=== PATIENT | female | born 1950 | race Caucasian/White ===

== ENCOUNTER 2022-02-25 14:23 | Emergency (ER) | payer MEDICARE, BC, SELFPAY ==
[2022-02-25] VITALS (9 sets, daily range): BP systolic 97–127; BP diastolic 57–73; PULSE 70–84; RESP 10–20; TEMP 36.5; O2SAT 96–100; BMI 28.1
[2022-02-25] MEDS: 0.9 % SODIUM CHLORIDE 500 ML 500 ML IV (15:05)
[2022-02-25 15:20] LABS: Lactate* 0.7 mmol/L (0.5-1.9)
[2022-02-25 15:24] LABS: Basophils Percent Auto 0.2 % (0.0-3.0); Eosinophils Percent Auto 0.1 % (0.0-7.0); Hematocrit 41.1 % (33.0-51.0); Hemoglobin* 13.4 gm/dL (12.0-16.0); Immature Granulocytes Abs Auto 0.13 K/uL (0.00-0.30); Mean Corpuscular HGB Conc 33 gm/dL (32-36); Mean Corpuscular Hemoglobin 30 pg (26-34); Mean Corpuscular Volume 92 fL (80-100); Monocytes Percent Auto 5.4 % (0.0-11.0); Neutrophils Percent Auto 86.3 % (42.0-72.0); Platelet Count* 201 K/uL (140-440); RDW Coefficient of Variation % 12.8 % (11.5-15.5); Red Blood Count 4.48 m/uL (4.00-5.20); White Blood Count* 12.82 K/uL (4.50-11.00)
[2022-02-25 15:34] LABS: Slide Review Reflex No
[2022-02-25 15:35] LABS: Chloride* 110 mmol/L (96-114); Sodium* 138 mmol/L (135-149)
[2022-02-25 15:36] LABS: Albumin* 3.7 g/dL (3.3-5.0); Potassium* 4.2 mmol/L (3.6-5.1)
[2022-02-25 15:38] LABS: Carbon Dioxide* 24 mmol/L (20-32); Estimated Glomerular Filt Rate 61 ml/min
[2022-02-25 15:39] LABS: Alkaline Phosphatase* 68 U/L (40-150); Aspartate Amino Transferase* 31 U/L (12-35); Bilirubin Direct* 0.3 mg/dL (0.0-0.5); Bilirubin Total* 0.8 mg/dL (0.1-1.5); Blood Urea Nitrogen* 18 mg/dL (7-30); Calcium* 8.4 mg/dL (8.4-10.6); Glucose* 107 mg/dL (60-115); Total Protein* 6.2 g/dL (6.0-8.3)
[2022-02-25 15:40] LABS: Alanine Aminotransferase* 24 U/L (4-35)
--- NOTE | 2022-02-25 15:40 | ED.NURSE ---
20G IV in L Hand placed by EMS DC'd at pt request due to c/o discomfort.
--- NOTE | 2022-02-25 16:01 | ED_ITS ---
HPI - General Adult General Chief complaint: Syncope/Fainted Stated complaint: Syncopal Time Seen by Provider: 02/25/22 14:46 History of Present Illness HPI narrative: 72-year-old female presenting to the ED today [place]. Patient was out on the golf course of this morning which happens to be 1 of the hardest days of the year, watching her grandson's golf tournament. She did not take a golf cart and instead opted to walk. So the alternated between walking and standing for prolonged periods of time with little movement. She states she was out there for about an hour when she began to sweat profusely. She asked someone if she could sit down in their golf cart and she apparently passed out at that time. The person who is goal carts she was sitting at was able to catch her so she did not hit her head or fall to the ground the gently placed her on the ground and she was told that she lost consciousness for approximately 20 seconds. She then came to and felt a little confused for maybe a minute or 2 before quickly realizing what had occurred and where she was. EMS was called at that time and she was brought to the ER for evaluation. By the time she arrives she had already received a L of normal saline and was asymptomatic. Her diaphoretic episode had subsided. She states that she is not confused, denies feeling hot. She denies any chest pain or abdominal discomfort. She was not nauseated denies vomiting. She does not have a headache. She denies any changes in her vision. She denies any muscle cramps. Her past medical history is significant for lichen sclerosis, hypothyroidism, hypertension, hyperlipidemia, osteopenia, narcolepsy. Related Data Allergies Allergy/AdvReac Type Severity Reaction Status Date / Time No Known Drug Allergies Allergy Verified 02/25/22 14:28 Review of Systems Status of ROS: Reports: 10 or more systems reviewed and unremarkable except as noted in History and below PFSH PFS Social History Smoking Status: Never smoker Do you use any of these nicotine containing products: None Second hand tobacco smoke exposure: No How often do you have a drink containing alcohol: never How often do you have six or more drinks on one occasion: Never AUDIT-C Alcohol total score: 0 Non-prescribed substance use: denies use Exam Narrative: Exam Narrative: Well-nourished well-developed patient in no acute distress. Alert and oriented. Answers questions appropriately. Mood and affect are appropriate. Thoughts are goal oriented and rational. No tangential or magical thinking noted. Patient speaks in full sentences without needing to catch their breath. Speech is not slurred or pressured. HEENT: Normocephalic atraumatic. Pupils are equally round reactive to light. Extraocular muscles are intact. Conjunctivae are moist without any icterus noted. Moist mucous membranes. Posterior pharynx is normal. Neck is soft without any lymphadenopathy or thyromegaly. No masses are appreciated. Cardiovascular: Heart is regular rate and rhythm S1 and S2 are present without any murmurs. Lungs: Clear to auscultation bilaterally no wheezes rhonchi or rales are appreciated. Patient takes deep breaths without any discomfort. Abdomen: Soft and nontender nondistended with normal bowel sounds. No guarding or rebound. No masses or organomegaly appreciated. Extremities: Bilateral lower extremities are without edema. Normal DP and PT pulses. Skin: Well perfused without any obvious rashes. Const: Vital Signs, click to edit/add: Vital Signs - 24 hr 02/25/22 14:28 02/25/22 14:35 02/25/22 15:00 Temperature 97.7 F Pulse Rate [Pulse Oximeter] 84 78 73 Respiratory Rate 20 Blood Pressure [Ri ght Upper Arm] 97/57 L 97/57 L 106/59 L Pulse Oximetry 98 98 98 02/25/22 15:30 02/25/22 16:00 02/25/22 16:30 Temperature Pulse Rate [Pulse Oximeter] 77 78 75 Respiratory Rate 20 10 L 12 Blood Pressure [Ri ght Upper Arm] 109/70 119/66 112/65 Pulse Oximetry 99 99 99 Course Course Hospital Course: Patient received another 500 mL of normal saline for a total of 1.5 L. Lab work was unremarkable aside from a slight bump in her white cell count which is expected. Her EKG showed normal sinus rhythm. Troponin, initial and repeat, were both within normal limits. Patient remained asymptomatic while she was here. Vital Signs Vital signs: Initial Vital Signs Temperature 97.7 F 02/25/22 14:28 Temperature Source Temporal Artery Scan 02/25/22 14:28 Pulse Rate 84 02/25/22 14:28 Pulse Rhythm 02/25/22 14:28 Respiratory Rate 20 02/25/22 14:28 Blood Pressure 97/57 L 02/25/22 14:28 Blood Pressure Mean 70 02/25/22 14:28 Pulse Oximetry 98 02/25/22 14:28 Oxygen Delivery Method 02/25/22 14:28 Vital Signs Temperature 97.7 F 02/25/22 14:28 Pulse Rate 84 02/25/22 14:28 Respiratory Rate 20 02/25/22 14:28 Blood Pressure 97/57 L 02/25/22 14:28 Pulse Oximetry 98 02/25/22 14:28 Temperature 97.7 F 02/25/22 14:28 Pulse Rate 75 02/25/22 16:30 Respiratory Rate 12 02/25/22 16:30 Blood Pressure 112/65 02/25/22 16:30 Pulse Oximetry 99 02/25/22 16:30 Medical Decision Making MDM Narrative Medical decision making narrative: 72-year-old female with heat syncope, recovered. We discussed symptomatic treatment. We discussed reasons to return to the ER. She was agreeable had no other questions. Medical Records Medical records reviewed: Yes I reviewed the patient's medical records Lab Data Lab results reviewed: Yes I reviewed the patient's lab results Labs: Lab Results 02/25/22 02/25/22 02/25/22 Range/Units 15:14 15:14 15:14 WBC 12.82 H (4.50-11.00) K/uL RBC 4.48 (4.00-5.20) m/uL Hgb 13.4 (12.0-16.0) gm/dL Hct 41.1 (33.0-51.0) % MCV 92 (80-100) fL MCH 30 (26-34) pg MCHC 33 (32-36) gm/dL RDW Coeff of Eliana 12.8 (11.5-15.5) % Plt Count 201 (140-440) K/uL Neut % (Auto) 86.3 H (42.0-72.0) % Lymph % (Auto) 7.0 L (20-44) % [place] % (Auto) 5.4 (0.0-11.0) % Eos % (Auto) 0.1 (0.0-7.0) % Baso % (Auto) 0.2 (0.0-3.0) % Neut # (Auto) 11.10 H (1.7-7.0) K/uL Lymph # (Auto) 0.90 (0.90-2.90) K/uL [place] # (Auto) 0.70 (0.00-0.90) K/UL Eos # (Auto) 0.00 (0.00-0.50) K/uL Baso # (Auto) 0.00 (0.00-0.30) K/uL Abs Immat Gran (auto) 0.13 (0.00-0.30) K/uL Sodium 138 (135-149) mmol/L Potassium 4.2 (3.6-5.1) mmol/L Chloride 110 (96-114) mmol/L Carbon Dioxide 24 (20-32) mmol/L BUN 18 (7-30) mg/dL Creatinine 1.0 (0.5-1.5) mg/dL Estimated Creat Clear 41.40 Estimated GFR 61 ml/min Glucose 107 (60-115) mg/dL Lactate (0.5-1.9) mmol/L Calcium 8.4 (8.4-10.6) mg/dL Total Bilirubin 0.8 (0.1-1.5) mg/dL Direct Bilirubin 0.3 (0.0-0.5) mg/dL AST 31 (12-35) U/L ALT 24 (4-35) U/L Alkaline Phosphatase 68 (40-150) U/L Total Protein 6.2 (6.0-8.3) g/dL Albumin 3.7 (3.3-5.0) g/dL POC Troponin I (0.01-0.04) ng/ml 02/25/22 02/25/22 02/25/22 Range/Units 15:14 16:14 17:30 WBC (4.50-11.00) K/uL RBC (4.00-5.20) m/uL Hgb (12.0-16.0) gm/dL Hct (33.0-51.0) % MCV (80-100) fL MCH (26-34) pg MCHC (32-36) gm/dL RDW Coeff of Eliana (11.5-15.5) % Plt Count (140-440) K/uL Neut % (Auto) (42.0-72.0) % Lymph % (Auto) (20-44) % [place] % (Auto) (0.0-11.0) % Eos % (Auto) (0.0-7.0) % Baso % (Auto) (0.0-3.0) % Neut # (Auto) (1.7-7.0) K/uL Lymph # (Auto) (0.90-2.90) K/uL [place] # (Auto) (0.00-0.90) K/UL Eos # (Auto) (0.00-0.50) K/uL Baso # (Auto) (0.00-0.30) K/uL Abs Immat Gran (auto) (0.00-0.30) K/uL Sodium (135-149) mmol/L Potassium (3.6-5.1) mmol/L Chloride (96-114) mmol/L Carbon Dioxide (20-32) mmol/L BUN (7-30) mg/dL Creatinine (0.5-1.5) mg/dL Estimated Creat Clear Estimated GFR ml/min Glucose (60-115) mg/dL Lactate 0.7 (0.5-1.9) mmol/L Calcium (8.4-10.6) mg/dL Total Bilirubin (0.1-1.5) mg/dL Direct Bilirubin (0.0-0.5) mg/dL AST (12-35) U/L ALT (4-35) U/L Alkaline Phosphatase (40-150) U/L Total Protein (6.0-8.3) g/dL Albumin (3.3-5.0) g/dL POC Troponin I 0.03 0.01 (0.01-0.04) ng/ml ECG Data Attestation: I personally reviewed and interpreted this ECG as follows: (Normal sinus rhythm) Discharge Plan Discharge Clinical Impression: Heat syncope Patient Disposition: Home, Self-Care Condition: Improved Additional Instructions: Make sure to stay in an air-conditioned environment for the next couple of days a given the extreme heat. Stay well hydrated. Get plenty of rest. Return to the ER if you developed muscle cramping, vomiting, fever. Follow Up/Referrals: Myra Escamilla MD [Primary Care Provider] - Stand Alone Forms: [employer] Info Instructions
[2022-02-25 16:31] LABS: Troponin, Point-of-Care* 0.03 ng/ml (0.01-0.04)
[2022-02-25 17:53] LABS: Troponin, Point-of-Care* 0.01 ng/ml (0.01-0.04)
== END 2022-02-25 18:10 | disposition home or self-care (01) ==
PROVIDERS: Emergency Provider Family Medicine; PCP Family Medicine
DX: T67.1XXA Heat syncope, initial encounter (principal)
CPT/HCPCS: 36415; 80048; 80076; 83605; 84484; 85025; 93005; 99284; J7120

== ENCOUNTER 2022-07-09 22:14 | Outpatient (CLI) | payer MEDICARE, BC, SELFPAY | END 2022-07-09 22:15 | disposition home or self-care (01) | LOC: AMB 07-19 10:25 | PROVIDERS: PCP Family Medicine; Visit Provider Emergency Medicine | DX: R53.1 Weakness (principal); R11.2 Nausea with vomiting, unspecified | CPT/HCPCS: A0425; A0427 ==

== ENCOUNTER 2022-07-09 23:01 | Emergency (ER) | payer MEDICARE, BC, SELFPAY ==
[2022-07-09 23:10] VITALS: BP 108/74; PULSE 62; RESP 18; TEMP 36.7; O2SAT 99; BMI 27.8
--- NOTE | 2022-07-09 23:42 | ED.GENADULT ---
HPI - General Adult General Date Seen: 07/09/22 <Michelle Lewis MD - Last Filed: 07/18/22 08:05> Chief complaint: Hypotension <Michelle Lewis MD - Last Filed: 07/18/22 08:05> Stated complaint: hypotension <Michelle Lewis MD - Last Filed: 07/18/22 08:05> Time Seen by Provider: 07/09/22 23:09 <Michelle Lewis MD - Last Filed: 07/18/22 08:05> Source: patient <Michelle Lewis MD - Last Filed: 07/18/22 08:05> History of Present Illness HPI narrative: Patient is a 72-year-old woman who is currently undergoing the prep for a colonoscopy scheduled tomorrow up in [place]. She says that she has had this scheduled for 2 months, she is having a colonoscopy and endoscopy on the same day. She has had some upper abdominal pain for a number of months now, tells me that she has had a CT scan that showed some adenopathy that was persistent, and her bilingual administrative assistant is concerned about possible Crohn's disease. She says that her daughter has upcoming neck surgery, and her is supposed to have a knee replacement in August, so she really needs to get her scopes done tomorrow. She had started the prep yesterday. She says she has had several colonoscopies before and so she is familiar with the prep. Tonight, she had done the [facility] in [facility] starting at about 530. By 830, she was still going to the bathroom, everything seemed to be okay. However, some point later, she was on her way to the bathroom and developed severe cramping in both legs. At that point, she developed nausea and then had several episodes of vomiting. She says she was vomiting initially clear fluid that look like they Gatorade she had been drinking. By the end she says she was vomiting bile. She did not have any significant abdominal pain at any point through this, she has continued to have that same vague upper abdominal pain that she has had over the past months. She says that the prep otherwise seemed to be going normally. She is not vomiting blood. She has not had any fevers. She denies chest pain or difficulty breathing. No light headedness or syncope. The leg cramps have settled down, and she no longer feels nauseated. At this point she feels back to normal. She did come been by ambulance, they gave her 500 mL of normal saline. <Michelle Lewis MD - Last Filed: 07/18/22 08:05> Related Data Home medications: Home Medications Medication Instructions Recorded Confirmed cetirizine 10 mg capsule (Zyrtec) 10 mg PO DAILY 07/09/22 07/09/22 clobetasol 0.05 % topical ointment 2 - 3 applic topical QWEEK 07/09/22 07/09/22 colestipol 1 gram tablet 2 g PO BID 07/09/22 07/09/22 levothyroxine 88 mcg tablet 88 mcg PO DAILY 07/09/22 07/09/22 lisinopril 20 mg tablet 20 mg PO DAILY 07/09/22 07/09/22 methylphenidate HCl 20 mg tablet 20 mg PO DAILY PRN 07/09/22 07/09/22 (Ritalin) multivitamin (Daily Multi-Vitamin 1 tab PO DAILY 07/09/22 07/09/22 tablet) rosuvastatin 5 mg tablet 5 mg PO HS 07/09/22 07/09/22 <Michelle Lewis MD - Last Filed: 07/18/22 08:05> Allergies/adverse reactions: Allergies Allergy/AdvReac Type Severity Reaction Status Date / Time ciprofloxacin Allergy Intermediate Hives Verified 07/09/22 23:27 morphine AdvReac Intermediate Vomiting, Verified 07/09/22 23:27 Dizziness naproxen AdvReac Mild GI Upset Verified 07/09/22 23:27 oxycodone AdvReac Mild GI Upset Verified 07/09/22 23:27 tramadol AdvReac Mild GI Upset Verified 07/09/22 23:27 <Michelle Lewis MD - Last Filed: 07/18/22 08:05> Review of Systems Status of ROS: Reports: 10 or more systems reviewed and unremarkable except as noted in History and below <Michelle Lewis MD - Last Filed: 07/18/22 08:05> [facility] Medical History: Medical History (Updated 07/25/22 @ 00:02 by ) Cataract Maxine's disease HTN (hypertension) Hyperlipidemia ZHENG (obstructive sleep apnea) Osteopenia Sleep disorder <Michelle Lewis MD - Last Filed: 07/18/22 08:05> Surgical History: Surgical History (Updated 07/10/22 @ 00:04 by Saul Barboza RN) History of section History of colonoscopy History of endoscopy History of hemilaminectomy History of tonsillectomy Hx of cholecystectomy <Michelle Lewis MD - Last Filed: 07/18/22 08:05> Social History: Social History Smoking Status: Never smoker Do you use any of these nicotine containing products: None Second hand tobacco smoke exposure: No How often do you have a drink containing alcohol: never How often do you have six or more drinks on one occasion: Never AUDIT-C Alcohol total score: 0 Non-prescribed substance use: denies use <Michelle Lewis MD - Last Filed: 07/18/22 08:05> Exam Narrative: Exam Narrative: Vital signs as noted above. In general, an alert, well-appearing patient. Head: Normocephalic, atraumatic. Eyes: Pupils are equal reactive. Extraocular movements are full. Conjunctivae are normal. ENT: Mucous membranes are moist. Throat is normal. Neck: Supple without lymphadenopathy. Heart: Regular rate and rhythm. No murmur or rub. Lungs: Clear bilaterally. No increased work of breathing, crackles or wheezes. Abdomen: Soft and nontender. No organomegaly. Extremities: Well perfused. No edema. No calf tenderness. Pulses intact. Neurologic: Patient is alert and oriented to person and place. Speech is fluent. Face is symmetric. Moves all extremities equally. Affect: Normal. Skin: Warm and dry. Well perfused. <Michelle Lewis MD - Last Filed: 07/18/22 08:05> Const: Vital Signs, click to edit/add: Vital Signs - 24 hr 07/09/22 23:10 Temperature 98.1 F Pulse Rate [Right Pulse Oximeter] 62 Respiratory Rate 18 Blood Pressure [Ri ght Upper Arm] 108/74 Pulse Oximetry 99 Oxygen Delivery Me thod Room Air <Michelle Lewis MD - Last Filed: 07/18/22 08:05> Vital Signs, click to edit/add: Vital Signs - 24 hr 07/09/22 23:10 Temperature 98.1 F Pulse Rate [Right Pulse Oximeter] 62 Respiratory Rate 18 Blood Pressure [Ri ght Upper Arm] 108/74 Pulse Oximetry 99 Oxygen Delivery Me thod Room Air <Krishan Shay MD - Last Filed: 09/05/22 11:02> Documenting provider has reviewed patient's vital signs: yes <Michelle Lewis MD - Last Filed: 07/18/22 08:05> Course Course Hospital Course: She has not established IV, I think we will just go ahead and give her another L of fluid while we checked some labs. Her vital signs are reassuring here, she does not have any significant abdominal tenderness. It sounds as if the prep was going through fine, there is nothing to suggest an obstruction here. We will check for any significant electrolyte abnormalities. It is possible this represented a vagal response to her leg cramping. We will go ahead and check an EKG as well and rule out any kind of predisposition to a cardiac arrhythmia. EKG by my review shows a sinus rhythm with a ventricular rate of 63 beats per minute. Normal QT. Normal MA. No acute ST segment changes. We will check some labs here including electrolytes, CBC, troponin. I think if these are normal, it is reasonable to let her go home. She is feeling well at this time. Medics report initial blood pressures in the 80s, but this is resolved with a little bit of fluid. Labs are likely related just to her prep, fluid losses, vomiting, and again, possibly a little bit of a component of vagal at divot 8. The leg cramping has resolved. If her potassium or another electrolyte is abnormal, we will replace that. Otherwise, plan will be did discharge her home as she is very much interested in being able to get her scoped tomorrow as planned. I think that is very much in her best interest. Certainly if she has acute changes, develops severe abdominal pain, further vomiting, further hypotension, we can invest more. Otherwise, patient is signed out to Dr. Shay for final disposition pending labs. <Michelle Lewis MD - Last Filed: 07/18/22 08:05> Reevaluation(s) Reevaluation #1: Patient was signed out to me by outgoing ED physician, no changes with her lab results, she is feeling well, plan would be to discharge as explained by previous provider to patient, patient had time to ask questions, she will follow up as scheduled. Return precautions given. <Krishan Shay MD - Last Filed: 09/05/22 11:02> Vital Signs Vital signs: Initial Vital Signs Temperature 98.1 F 07/09/22 23:10 Temperature Source Temporal Artery Scan 07/09/22 23:10 Pulse Rate 62 07/09/22 23:10 Respiratory Rate 18 07/09/22 23:10 Blood Pressure 108/74 07/09/22 23:10 Blood Pressure Mean 85 07/09/22 23:10 Blood Pressure Position Sitting 07/09/22 23:10 Pulse Oximetry 99 07/09/22 23:10 Oxygen Delivery Method 07/09/22 23:10 Vital Signs Temperature 98.1 F 07/09/22 23:10 Pulse Rate 62 07/09/22 23:10 Respiratory Rate 18 07/09/22 23:10 Blood Pressure 108/74 07/09/22 23:10 Pulse Oximetry 99 07/09/22 23:10 Oxygen Delivery Method 07/09/22 23:10 Temperature 98.1 F 07/09/22 23:10 Pulse Rate 68 07/10/22 01:30 Respiratory Rate 16 07/10/22 01:30 Blood Pressure 105/78 07/10/22 01:30 Pulse Oximetry 98 07/10/22 01:30 Oxygen Delivery Method 07/10/22 01:30 <Michelle Lewis MD - Last Filed: 07/18/22 08:05> Initial Vital Signs Temperature 98.1 F 07/09/22 23:10 Temperature Source Temporal Artery Scan 07/09/22 23:10 Pulse Rate 62 07/09/22 23:10 Respiratory Rate 18 07/09/22 23:10 Blood Pressure 108/74 07/09/22 23:10 Blood Pressure Mean 85 07/09/22 23:10 Blood Pressure Position Sitting 07/09/22 23:10 Pulse Oximetry 99 07/09/22 23:10 Oxygen Delivery Method 07/09/22 23:10 Vital Signs Temperature 98.1 F 07/09/22 23:10 Pulse Rate 62 07/09/22 23:10 Respiratory Rate 18 07/09/22 23:10 Blood Pressure 108/74 07/09/22 23:10 Pulse Oximetry 99 07/09/22 23:10 Oxygen Delivery Method 07/09/22 23:10 Temperature 98.1 F 07/09/22 23:10 Pulse Rate 68 07/10/22 01:30 Respiratory Rate 16 07/10/22 01:30 Blood Pressure 105/78 07/10/22 01:30 Pulse Oximetry 98 07/10/22 01:30 Oxygen Delivery Method 07/10/22 01:30 <Krishan Shay MD - Last Filed: 09/05/22 11:02> Medical Decision Making Lab Data Labs: Lab Results 07/10/22 07/10/22 07/10/22 Range/Units 00:05 00:05 00:05 WBC 12.78 H (4.50-11.00) K/uL RBC 4.82 (4.00-5.20) m/uL Hgb 14.6 (12.0-16.0) gm/dL Hct 43.8 (33.0-51.0) % MCV 91 (80-100) fL MCH 30 (26-34) pg MCHC 33 (32-36) gm/dL RDW Coeff of Eliana 12.6 (11.5-15.5) % Plt Count 214 (140-440) K/uL Neut % (Auto) 87.5 H (42.0-72.0) % Lymph % (Auto) 7.5 L (20-44) % [place] % (Auto) 4.4 (0.0-11.0) % Eos % (Auto) 0.2 (0.0-7.0) % Baso % (Auto) 0.2 (0.0-3.0) % Neut # (Auto) 11.20 H (1.7-7.0) K/uL Lymph # (Auto) 1.00 (0.90-2.90) K/uL [place] # (Auto) 0.60 (0.00-0.90) K/UL Eos # (Auto) 0.00 (0.00-0.50) K/uL Baso # (Auto) 0.00 (0.00-0.30) K/uL Abs Immat Gran (auto) 0.00 (0.00-0.30) K/uL Imm/Tot Granulo (auto) 0.2 % Sodium 142 (135-149) mmol/L Potassium 4.0 (3.6-5.1) mmol/L Chloride 110 (96-114) mmol/L Carbon Dioxide 22 (20-32) mmol/L BUN 13 (7-30) mg/dL Creatinine 1.0 (0.5-1.5) mg/dL Estimated Creat Clear 43.30 Estimated GFR 61 ml/min Glucose 102 (60-115) mg/dL Calcium 9.3 (8.4-10.6) mg/dL Magnesium 2.3 (1.5-2.6) mg/dL Troponin I < 0.01 L (0.01-0.04) ng/mL <Michelle Lewis MD - Last Filed: 07/18/22 08:05> Lab Results 07/10/22 07/10/22 07/10/22 Range/Units 00:05 00:05 00:05 WBC 12.78 H (4.50-11.00) K/uL RBC 4.82 (4.00-5.20) m/uL Hgb 14.6 (12.0-16.0) gm/dL Hct 43.8 (33.0-51.0) % MCV 91 (80-100) fL MCH 30 (26-34) pg MCHC 33 (32-36) gm/dL RDW Coeff of Eliana 12.6 (11.5-15.5) % Plt Count 214 (140-440) K/uL Neut % (Auto) 87.5 H (42.0-72.0) % Lymph % (Auto) 7.5 L (20-44) % [place] % (Auto) 4.4 (0.0-11.0) % Eos % (Auto) 0.2 (0.0-7.0) % Baso % (Auto) 0.2 (0.0-3.0) % Neut # (Auto) 11.20 H (1.7-7.0) K/uL Lymph # (Auto) 1.00 (0.90-2.90) K/uL [place] # (Auto) 0.60 (0.00-0.90) K/UL Eos # (Auto) 0.00 (0.00-0.50) K/uL Baso # (Auto) 0.00 (0.00-0.30) K/uL Abs Immat Gran (auto) 0.00 (0.00-0.30) K/uL Imm/Tot Granulo (auto) 0.2 % Sodium 142 (135-149) mmol/L Potassium 4.0 (3.6-5.1) mmol/L Chloride 110 (96-114) mmol/L Carbon Dioxide 22 (20-32) mmol/L BUN 13 (7-30) mg/dL Creatinine 1.0 (0.5-1.5) mg/dL Estimated Creat Clear 43.30 Estimated GFR 61 ml/min Glucose 102 (60-115) mg/dL Calcium 9.3 (8.4-10.6) mg/dL Magnesium 2.3 (1.5-2.6) mg/dL Troponin I < 0.01 L (0.01-0.04) ng/mL <Krishan Shay MD - Last Filed: 09/05/22 11:02> Discharge Plan Discharge Clinical Impression: Muscle cramp, Vomiting <Michelle Lewis MD - Last Filed: 07/18/22 08:05> Patient Disposition: Home, Self-Care <Michelle Lewis MD - Last Filed: 07/18/22 08:05> Condition: Improved <Michelle Lewis MD - Last Filed: 07/18/22 08:05> Instructions: Leg Cramps (ED) <Michelle Lewis MD - Last Filed: 07/18/22 08:05> Additional Instructions: Follow-up today for colonoscopy and endoscopy as planned. Return for any acute worsening, severe abdominal pain, fainting, or other concerns. <Michelle Lewis MD - Last Filed: 07/18/22 08:05> Prescriptions: No Action clobetasol 0.05 % ointment 2 - 3 applic TOPICAL QWEEK Label Comments: APPLY 2 TO 3 NIGHTS WEEKLY ON VULVA colestipol 1 gram tablet 2 g PO BID Label Comments: TAKE 2 TABLETS BY MOUTH TWICE DAILY SWALLOWING WHOLE WITH ANY LIQUID. DO NOT CRUSH, CHEW, OR DIVIDE levothyroxine 88 mcg tablet 88 mcg PO DAILY Label Comments: TAKE 1 TABLET (88 MCG) BY MOUTH BEFORE BREAKFAST. lisinopril 20 mg tablet 20 mg PO DAILY Label Comments: TAKE 1 TABLET BY MOUTH EVERY DAY rosuvastatin 5 mg tablet 5 mg PO HS Label Comments: TAKE 1 TABLET BY MOUTH AT BEDTIME Zyrtec 10 mg capsule 10 mg PO DAILY multivitamin [Daily Multi-Vitamin] Tablet 1 tab PO DAILY methylphenidate HCl [Ritalin] 20 mg tablet 20 mg PO DAILY PRN Label Comments: take one tablet as needed for driving <Michelle Lewis MD - Last Filed: 07/18/22 08:05> Follow Up/Referrals: Myra Escamilla MD [Primary Care Provider] - <Michelle Lewis MD - Last Filed: 07/18/22 08:05> Stand Alone Forms: [employer] Info Instructions <Michelle Lewis MD - Last Filed: 07/18/22 08:05>
[2022-07-10] MEDS: 0.9 % SODIUM CHLORIDE 1000 ml 1,000 ML IV (00:05)
[2022-07-10 00:15] VITALS: PULSE 74; O2SAT 97
[2022-07-10 00:30] VITALS: PULSE 65; O2SAT 99
[2022-07-10 00:31] VITALS: BP 100/62; PULSE 65; O2SAT 97
[2022-07-10 00:35] LABS: Basophils Percent Auto 0.2 % (0.0-3.0); Chloride* 110 mmol/L (96-114); Eosinophils Percent Auto 0.2 % (0.0-7.0); Hematocrit 43.8 % (33.0-51.0); Hemoglobin* 14.6 gm/dL (12.0-16.0); Immature Granulocytes Pct Auto 0.2 %; Lymphocytes Percent Auto 7.5 % (20-44); Mean Corpuscular HGB Conc 33 gm/dL (32-36); Mean Corpuscular Hemoglobin 30 pg (26-34); Mean Corpuscular Volume 91 fL (80-100); Monocytes Percent Auto 4.4 % (0.0-11.0); Neutrophils Percent Auto 87.5 % (42.0-72.0); Platelet Count* 214 K/uL (140-440); RDW Coefficient of Variation % 12.6 % (11.5-15.5); Red Blood Count 4.82 m/uL (4.00-5.20); White Blood Count* 12.78 K/uL (4.50-11.00)
[2022-07-10 00:36] LABS: Sodium* 142 mmol/L (135-149)
[2022-07-10 00:37] LABS: Slide Review Reflex No
[2022-07-10 00:38] LABS: Estimated Glomerular Filt Rate 61 ml/min
[2022-07-10 00:39] LABS: Blood Urea Nitrogen* 13 mg/dL (7-30); Calcium* 9.3 mg/dL (8.4-10.6); Carbon Dioxide* 22 mmol/L (20-32); Glucose* 102 mg/dL (60-115); Magnesium* 2.3 mg/dL (1.5-2.6)
[2022-07-10 00:45] VITALS: PULSE 71; O2SAT 96
[2022-07-10 00:51] LABS: Troponin I* < 0.01 ng/mL (0.01-0.04)
[2022-07-10 01:30] VITALS: BP 105/78; PULSE 68; RESP 16; O2SAT 98
== END 2022-07-10 01:35 | disposition home or self-care (01) ==
PROVIDERS: Emergency Provider Emergency Medicine; PCP Family Medicine
DX: R11.10 Vomiting, unspecified (principal); M62.838 Other muscle spasm
CPT/HCPCS: 36415; 80048; 83735; 84484; 85025; 93005; 99283; 99284; J7030

== ENCOUNTER 2022-11-06 10:00 | Outpatient (RCR) | payer MEDICARE, BC, SELFPAY | END 2023-02-27 23:59 | disposition home or self-care (01) | PROVIDERS: PCP Family Medicine; Visit Provider Family Medicine | DX: M54.9 Dorsalgia, unspecified (principal); M54.2 Cervicalgia; M25.562 Pain in left knee; Z51.89 Encounter for other specified aftercare | CPT/HCPCS: 97110; 97140; 97162 ==

== ENCOUNTER 2022-11-13 03:50 | Emergency (ER) | payer MEDICARE, BC, SELFPAY ==
[2022-11-13] VITALS (7 sets, daily range): BP systolic 108–117; BP diastolic 70–75; PULSE 70–77; RESP 16–18; TEMP 36.7–37; O2SAT 93–99; BMI 28.3
--- NOTE | 2022-11-13 04:24 | ED_ITS ---
HPI - General Adult General Date Seen: 11/13/22 Chief complaint: Unspecified Complaint, Adult Stated complaint: Dehydration Time Seen by Provider: 11/13/22 03:55 Source: patient Mode of arrival: ambulatory Limitations: no limitations History of Present Illness HPI narrative: Patient is a 72-year-old here for evaluation of diarrhea which started several hours ago. She does have a grandchild who was staying with her a couple of days ago who had some GI symptoms. She has had a little nausea but no vomiting. She says that she tried drinking a little water earlier and it went straight th rough. She has not had any bloody stools. Has little abdominal cramping no severe abdominal pain. No fevers. No recent antibiotics, non city water, travel. History of previous cholecystectomy. She says that she has fainted in the past due to dehydration and so decided to come in right away. Related Data Home Medications Medication Instructions Recorded Confirmed cetirizine 10 mg capsule (Zyrtec) 10 mg PO DAILY 07/09/22 11/13/22 clobetasol 0.05 % topical ointment 2 - 3 applic topical QWEEK 07/09/22 11/13/22 colestipol 1 gram tablet 2 g PO BID 07/09/22 11/13/22 levothyroxine 88 mcg tablet 88 mcg PO DAILY 07/09/22 11/13/22 lisinopril 10 mg tablet 10 mg PO DAILY 11/13/22 11/13/22 rosuvastatin 10 mg tablet 10 mg PO QPM 11/13/22 11/13/22 Allergies Allergy/AdvReac Type Severity Reaction Status Date / Time ciprofloxacin Allergy Intermediate Hives Verified 11/13/22 04:07 morphine AdvReac Mild Vomiting, Verified 11/13/22 04:07 Dizziness naproxen AdvReac Mild GI Upset Verified 11/13/22 04:07 oxycodone AdvReac Mild GI Upset Verified 11/13/22 04:07 tramadol AdvReac Mild GI Upset Verified 11/13/22 04:07 Review of Systems Status of ROS: Reports: 10 or more systems reviewed and unremarkable except as noted in History and below [facility] Medical History Cataract ?H26.9 - Unspecified cataract (ICD-10) 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890 - Other specified postprocedural states (ICD-10) History of hemilaminectomy ?Z98.890 - Other specified postprocedural states (ICD-10) History of tonsillectomy ?Z90.89 - Acquired absence of other organs (ICD-10) Hx of cholecystectomy ?Z90.49 - Acquired absence of other specified parts of digestive tract (ICD- 10) Social History Smoking Status: Never smoker Do you use any of these nicotine containing products: None Second hand tobacco smoke exposure: No How often do you have a drink containing alcohol: never How often do you have six or more drinks on one occasion: Never AUDIT-C Alcohol total score: 0 Non-prescribed substance use: denies use Exam Narrative: Exam Narrative: Vital signs as noted above. In general, an alert, well-appearing patient. Head: Normocephalic, atraumatic. Eyes: Pupils are equal reactive. Extraocular movements are full. Conjunctivae are normal. ENT: Mucous membranes are moist. Throat is normal. Neck: Supple without lymphadenopathy. Heart: Regular rate and rhythm. No murmur or rub. Lungs: Clear bilaterally. No increased work of breathing, crackles or wheezes. Abdomen: Soft and nontender. No organomegaly. Extremities: Well perfused. No edema. No calf tenderness. Pulses intact. Neurologic: Patient is alert and oriented to person and place. Speech is fluent. Face is symmetric. Moves all extremities equally. Affect: Normal. Skin: Warm and dry. Well perfused. Const: Vital Signs, click to edit/add: Vital Signs - 24 hr 11/13/22 04:03 11/13/22 04:24 11/13/22 04:17 Temperature 98.0 F Pulse Rate 77 Pulse Rate [Right Pulse Oximeter] 74 Respiratory Rate 18 16 Blood Pressure 108/72 Blood Pressure [Ri ght Upper Arm] 117/75 Pulse Oximetry 99 98 94 Oxygen Delivery Me thod Room Air Documenting provider has reviewed patient's vital signs: yes Course Course Hospital Course: She is well-appearing at this time, vital signs are normal. Will go ahead and give her a L of normal saline and check some electrolytes, basic labs. My suspicion for significant disease such as ischemic colitis, diverticulitis, is rather low. She has had symptoms only for a few hours, does not have signs of dysentery, has benign abdominal exam. For now, would recommend supportive care, Imodium is reasonable. Labs are reassuring. White blood cell count is normal with a slight left shift. Hemoglobin 15.3. Electrolytes show sodium of 138, potassium 4.3. BUN creatinine normal. Blood sugar 131. LFTs are unremarkable. CRP is less than 0.5. Would recommend primary care follow-up if symptoms do not improve over the next few days to week, return for severe changes such as bloody stools, fever, severe abdominal pain. Continue to hydrate at home. Vital Signs Vital signs: Initial Vital Signs Temperature 98.0 F 11/13/22 04:03 Temperature Source Temporal Artery Scan 11/13/22 04:03 Pulse Rate 74 11/13/22 04:03 Respiratory Rate 18 11/13/22 04:03 Blood Pressure 117/75 11/13/22 04:03 Blood Pressure Mean 89 11/13/22 04:03 Blood Pressure Position Sitting 11/13/22 04:03 Pulse Oximetry 99 11/13/22 04:03 Oxygen Delivery Method Room Air 11/13/22 04:03 Vital Signs Temperature 98.0 F 11/13/22 04:03 Pulse Rate 74 11/13/22 04:03 Respiratory Rate 18 11/13/22 04:03 Blood Pressure 117/75 11/13/22 04:03 Pulse Oximetry 99 11/13/22 04:03 Oxygen Delivery Method Room Air 11/13/22 04:03 Temperature 98.0 F 11/13/22 04:03 Pulse Rate 77 11/13/22 04:17 Respiratory Rate 16 11/13/22 04:17 Blood Pressure 108/72 11/13/22 04:17 Pulse Oximetry 98 11/13/22 04:24 Oxygen Delivery Method Room Air 11/13/22 04:03 Medical Decision Making Lab Data Labs: Lab Results 11/13/22 Range/Units 04:20 WBC 9.87 (4.50-11.00) K/uL RBC 5.08 (4.00-5.20) m/uL Hgb 15.3 (12.0-16.0) gm/dL Hct 45.3 (33.0-51.0) % MCV 89 (80-100) fL MCH 30 (26-34) pg MCHC 34 (32-36) gm/dL RDW Coeff of Eliana 12.6 (11.5-15.5) % Plt Count 217 (140-440) K/uL Neut % (Auto) 85.3 H (42.0-72.0) % Lymph % (Auto) 7.1 L (20-44) % Robertson % (Auto) 5.8 (0.0-11.0) % Eos % (Auto) 1.3 (0.0-7.0) % Baso % (Auto) 0.2 (0.0-3.0) % Neut # (Auto) 8.40 H (1.7-7.0) K/uL Lymph # (Auto) 0.70 L (0.90-2.90) K/uL Robertson # (Auto) 0.60 (0.00-0.90) K/UL Eos # (Auto) 0.13 (0.00-0.50) K/uL Baso # (Auto) 0.02 (0.00-0.30) K/uL Sodium 138 (135-149) mmol/L Potassium 4.3 (3.6-5.1) mmol/L Chloride 110 (96-114) mmol/L Carbon Dioxide 22 (20-32) mmol/L BUN 16 (7-30) mg/dL Creatinine 0.8 (0.5-1.5) mg/dL Estimated Creat Clear 43.30 Estimated GFR 79 ml/min Glucose 131 H (60-115) mg/dL Calcium 9.0 (8.4-10.6) mg/dL Total Bilirubin 0.8 (0.1-1.5) mg/dL Direct Bilirubin 0.2 (0.0-0.5) mg/dL AST 34 (12-35) U/L ALT 30 (4-35) U/L Alkaline Phosphatase 68 (40-150) U/L C-Reactive Protein < 0.5 L (0.5-1.0) mg/dL Total Protein 7.6 (6.0-8.3) g/dL Albumin 4.4 (3.3-5.0) g/dL Discharge Plan Discharge Clinical Impression: Diarrhea Patient Disposition: Home, Self-Care Condition: Improved Instructions: Acute Diarrhea (ED) Additional Instructions: Continue with oral hydration at home. For diarrhea, it is okay to try a couple of doses of Imodium. If you have severe abdominal pain, fevers, bloody stools, significant vomiting, you should be seen again. If the diarrhea does not resolve over the next several days to week, follow-up with your primary doctor. Prescriptions: No Action clobetasol 0.05 % ointment 2 - 3 applic TOPICAL QWEEK Patient Comments: APPLY 2 TO 3 NIGHTS WEEKLY ON VULVA colestipol 1 gram tablet 2 g PO BID Patient Comments: TAKE 2 TABLETS BY MOUTH TWICE DAILY SWALLOWING WHOLE WITH ANY LIQUID. DO NOT CRUSH, CHEW, OR DIVIDE levothyroxine 88 mcg tablet 88 mcg PO DAILY Patient Comments: TAKE 1 TABLET (88 MCG) BY MOUTH BEFORE BREAKFAST. Zyrtec 10 mg capsule 10 mg PO DAILY lisinopril 10 mg tablet 10 mg PO DAILY rosuvastatin 10 mg tablet 10 mg PO QPM Follow Up/Referrals: Myra Escamilla MD [Primary Care Provider] - Stand Alone Forms: [employer] Info Instructions
[2022-11-13] MEDS: 0.9 % SODIUM CHLORIDE 1000 ml 1,000 ML IV (04:25)
[2022-11-13 04:31] LABS: Basophils Absolute Auto 0.02 K/uL (0.00-0.30); Basophils Percent Auto 0.2 % (0.0-3.0); Eosinophils Absolute Auto 0.13 K/uL (0.00-0.50); Eosinophils Percent Auto 1.3 % (0.0-7.0); Hematocrit 45.3 % (33.0-51.0); Hemoglobin* 15.3 gm/dL (12.0-16.0); Immature Granulocytes Abs Auto 0.03 K/uL (0.00-0.30); Immature Granulocytes Pct Auto 0.3 %; Lymphocytes Percent Auto 7.1 % (20-44); Mean Corpuscular HGB Conc 34 gm/dL (32-36); Mean Corpuscular Hemoglobin 30 pg (26-34); Mean Corpuscular Volume 89 fL (80-100); Monocytes Percent Auto 5.8 % (0.0-11.0); Neutrophils Percent Auto 85.3 % (42.0-72.0); Platelet Count* 217 K/uL (140-440); RDW Coefficient of Variation % 12.6 % (11.5-15.5); Red Blood Count 5.08 m/uL (4.00-5.20); White Blood Count* 9.87 K/uL (4.50-11.00)
[2022-11-13 04:46] LABS: Slide Review Reflex No
[2022-11-13 04:50] LABS: Albumin* 4.4 g/dL (3.3-5.0); Chloride* 110 mmol/L (96-114)
[2022-11-13 04:51] LABS: Potassium* 4.3 mmol/L (3.6-5.1); Sodium* 138 mmol/L (135-149)
[2022-11-13 04:53] LABS: Creatinine* 0.8 mg/dL (0.5-1.5); Estimated Glomerular Filt Rate 79 ml/min
[2022-11-13 04:54] LABS: Alanine Aminotransferase* 30 U/L (4-35); Alkaline Phosphatase* 68 U/L (40-150); Aspartate Amino Transferase* 34 U/L (12-35); Bilirubin Direct* 0.2 mg/dL (0.0-0.5); Bilirubin Total* 0.8 mg/dL (0.1-1.5); Blood Urea Nitrogen* 16 mg/dL (7-30); Carbon Dioxide* 22 mmol/L (20-32); Total Protein* 7.6 g/dL (6.0-8.3)
[2022-11-13 04:55] LABS: Glucose* 131 mg/dL (60-115)
[2022-11-13 04:57] LABS: C Reactive Protein* < 0.5 mg/dL (0.5-1.0)
== END 2022-11-13 05:11 | disposition home or self-care (01) ==
PROVIDERS: Emergency Provider Emergency Medicine; PCP Family Medicine
DX: R19.7 Diarrhea, unspecified (principal)
CPT/HCPCS: 36415; 80048; 80076; 85025; 86140; 94761; 96360; 99283; 99284; J7030

== ENCOUNTER 2023-08-02 06:07 | Emergency (ER) | payer MEDICARE, BC, SELFPAY ==
[2023-08-02 06:13] VITALS: BP 131/78; PULSE 59; RESP 16; TEMP 36.6; O2SAT 98; BMI 28.9
--- NOTE | 2023-08-02 06:20 | CRLHL7_ITS ---
For Patients: As a result of the Century Cures Act, medical imaging exams and procedure reports are released immediately into your electronic medical record. You may view this report before your referring provider. If you have questions, please contact your health care provider. INDICATION: Lower abdominal pain. History of diverticulosis. COMPARISON: December 31, 2020 TECHNIQUE: CT examination of the abdomen and pelvis was performed following the uneventful intravenous administration of 78 cc of Isovue 370. Thin section axial images were obtained from the lung bases through the pubic symphysis. Oral contrast was not administered. Please note that all CT scans at this facility use dose modulation, iterative reconstruction, and/or weight-based dosing when appropriate to reduce radiation dose to as low as reasonably achievable. FINDINGS: LUNG BASES: The lung bases as visualized appear normal.The heart size is normal at the lung bases. LIVER/BILIARY SYSTEM:Liver normal in size. No biliary ductal dilation. Small simple cyst in the left lobe.Surgically absent gallbladder. ADRENALS: No significant adrenal abnormality KIDNEYS, URETERS and BLADDER:Benign low-density renal lesions noted. Right-sided calculus but no obstructive uropathy. Ureters of normal caliber. Bladder unremarkable. SPLEEN:Incidental granulomatous calcifications PANCREAS: Appears normal. RETROPERITONEUM and MESENTERY: There is no mass, adenopathy or aortic aneurysm. Atherosclerotic vascular calcifications GASTROINTESTINAL SYSTEM: Diverticulosis. Findings of very mild acute uncomplicated sigmoid diverticulitis. This is best seen on axial image 96 of 139. PELVIS: No mass, adenopathy or free fluid. OSSEOUS STRUCTURES and ABDOMINAL WALL: There is an age-appropriate appearance of the osseous structures.No significant abdominal wall defect. OTHER: No free fluid or free air. IMPRESSION: Findings likely representing very mild acute uncomplicated sigmoid diverticulitis. Other incidental nonacute appearing findings as discussed in the body of the report. Please note that all CT scans at this facility use dose modulation, iterative reconstruction, and/or weight-based dosing when appropriate to reduce radiation dose to as low as reasonably achievable. Dictated by Faisal Khan MD @ 08/02/2023 8:31:33 AM (Electronically Signed)
--- NOTE | 2023-08-02 06:21 | ED.ABDPAIN ---
HPI - Abdominal Pain General Chief Complaint: Abdominal Pain <Geoffrey Levy MD - Last Filed: 08/04/23 16:24> Stated Complaint: Lower abdominal pain <Geoffrey Levy MD - Last Filed: 08/04/23 16:24> Time Seen by Provider: 08/02/23 06:21 <Geoffrey Levy MD - Last Filed: 08/04/23 16:24> History of Present Illness HPI narrative: Patient is a 73-year-old woman who will be hosting [place] in the next few hours who woke up with diffuse midline abdominal pain. She has no dysuria no nausea no vomiting no fevers no chills. This is typically the beginning the presentation for diverticulitis. She had been her usual state of health and is unable to get comfortable at home. She has tried no Tylenol or Motrin. She is not certain when her most recent colonoscopy was. She has no diarrhea or reflux symptoms. <Geoffrey Levy MD - Last Filed: 08/04/23 16:24> Related Data Home Medications: Home Medications Medication Instructions Recorded Confirmed cetirizine 10 mg capsule (Zyrtec) 10 mg PO DAILY 07/09/22 11/13/22 clobetasol 0.05 % topical ointment 2 - 3 applic topical QWEEK 07/09/22 11/13/22 colestipol 1 gram tablet 2 g PO BID 07/09/22 11/13/22 levothyroxine 88 mcg tablet 88 mcg PO DAILY 07/09/22 11/13/22 lisinopril 10 mg tablet 10 mg PO DAILY 11/13/22 11/13/22 rosuvastatin 10 mg tablet 10 mg PO QPM 11/13/22 11/13/22 Previous Rx's Medication Instructions Recorded amoxicillin 875 mg-potassium 1 tab PO BID #20 tabs 08/02/23 clavulanate 125 mg tablet <Geoffrey Levy MD - Last Filed: 08/04/23 16:24> Allergies/Adverse Reactions: Allergies Allergy/AdvReac Type Severity Reaction Status Date / Time ciprofloxacin Allergy Intermediate Hives Verified 11/13/22 04:07 morphine AdvReac Mild Vomiting, Verified 11/13/22 04:07 Dizziness naproxen AdvReac Mild GI Upset Verified 11/13/22 04:07 oxycodone AdvReac Mild GI Upset Verified 11/13/22 04:07 tramadol AdvReac Mild GI Upset Verified 11/13/22 04:07 <Geoffrey Levy MD - Last Filed: 08/04/23 16:24> Review of Systems Status of ROS Reports: 10 or more systems reviewed and unremarkable except as noted in History and below <Geoffrey Levy MD - Last Filed: 08/04/23 16:24> [facility] Medical History: Medical History 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) Cataract ?H26.9 - Unspecified cataract (ICD-10) Sleep disorder ?G47.9 - Sleep disorder, unspecified (ICD-10) Osteopenia ?M85.80 - Other specified disorders of bone density and structure, unspecified site (ICD-10) ZHENG (obstructive sleep apnea) ?G47.33 - Obstructive sleep apnea (adult) (pediatric) (ICD-10) Hyperlipidemia ?E78.5 - Hyperlipidemia, unspecified (ICD-10) HTN (hypertension) ?I10 - Essential (primary) hypertension (ICD-10) 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) <Geoffrey Levy MD - Last Filed: 08/04/23 16:24> Surgical History: Surgical History History of hemilaminectomy ?Z98.890 - Other specified postprocedural states (ICD-10) History of tonsillectomy ?Z90.89 - Acquired absence of other organs (ICD-10) History of endoscopy ?Z98.890 - Other specified postprocedural states (ICD-10) History of colonoscopy ?Z98.890 - Other specified postprocedural states (ICD-10) History of section ?Z98.891 - History of uterine scar from previous surgery (ICD-10) Hx of cholecystectomy ?Z90.49 - Acquired absence of other specified parts of digestive tract (ICD-10) <Geoffrey Levy MD - Last Filed: 08/04/23 16:24> Social History: Social History Smoking Status: Never smoker Do you use any of these nicotine containing products: None Second hand tobacco smoke exposure: No How often do you have a drink containing alcohol: never How often do you have six or more drinks on one occasion: Never AUDIT-C Alcohol total score: 0 Non-prescribed substance use: denies use <Geoffrey Levy MD - Last Filed: 08/04/23 16:24> Exam Narrative: Exam Narrative: EXAM GENERAL: Patient appears comfortable and well. EYES: No scleral icterus. LYMPH: No supraclavicular or cervical lymphadenopathy. SKIN: Visible skin seen during exam normal or with benign process only. EXT: No dependent lower extremity pedal edema. HEART: Regular rate and rhythm with no murmurs, rubs, or gallops. LUNGS: Clear to auscultation bilaterally with no crackles or wheezes. ABD: Soft, non tender, non distended. PSYCH: Good eye contact, speech is not pressured. <Geoffrey Levy MD - Last Filed: 08/04/23 16:24> Const: Vital Signs, click to edit/add: Vital Signs - 24 hr 08/02/23 06:13 08/02/23 06:22 08/02/23 07:25 Temperature 97.9 F Pulse Rate [Pulse Oximeter] 59 L 63 Respiratory Rate 16 16 Blood Pressure [Ri ght Upper Arm] 131/78 127/74 Pulse Oximetry 98 98 98 Oxygen Delivery Me thod Room Air Room Air 08/02/23 08:45 Temperature 98.9 F Pulse Rate [Pulse Oximeter] 62 Respiratory Rate 16 Blood Pressure [Ri ght Upper Arm] 117/70 Pulse Oximetry 96 Oxygen Delivery Me thod Room Air <Geoffrey Levy MD - Last Filed: 08/04/23 16:24> Vital Signs, click to edit/add: Vital Signs - 24 hr 08/02/23 06:13 08/02/23 06:22 08/02/23 07:25 Temperature 97.9 F Pulse Rate [Pulse Oximeter] 59 L 63 Respiratory Rate 16 16 Blood Pressure [Ri ght Upper Arm] 131/78 127/74 Pulse Oximetry 98 98 98 Oxygen Delivery Me thod Room Air Room Air 08/02/23 08:45 Temperature 98.9 F Pulse Rate [Pulse Oximeter] 62 Respiratory Rate 16 Blood Pressure [Ri ght Upper Arm] 117/70 Pulse Oximetry 96 Oxygen Delivery Me thod Room Air <Chris Mondragon MD - Last Filed: 08/02/23 09:11> Course Course ED Course: Patient's likely diagnosis is diverticulitis. I a will start evaluation with the UA CBC basic metabolic panel amylase as well as CT of the abdomen pelvis. Will give her 1 L of normal saline and follow up based on those results. <Geoffrey Levy MD - Last Filed: 08/04/23 16:24> Vital Signs Vital signs: Initial Vital Signs Temperature 97.9 F 08/02/23 06:13 Temperature Source Temporal Artery Scan 08/02/23 06:13 Pulse Rate 59 L 08/02/23 06:13 Respiratory Rate 16 08/02/23 06:13 Blood Pressure 131/78 08/02/23 06:13 Blood Pressure Mean 95 08/02/23 06:13 Pulse Oximetry 98 08/02/23 06:13 Oxygen Delivery Method Room Air 08/02/23 06:13 Vital Signs Temperature 97.9 F 08/02/23 06:13 Pulse Rate 59 L 08/02/23 06:13 Respiratory Rate 16 08/02/23 06:13 Blood Pressure 131/78 08/02/23 06:13 Pulse Oximetry 98 08/02/23 06:13 Oxygen Delivery Method Room Air 08/02/23 06:13 Temperature 98.9 F 08/02/23 08:45 Pulse Rate 62 08/02/23 08:45 Respiratory Rate 16 08/02/23 08:45 Blood Pressure 117/70 08/02/23 08:45 Pulse Oximetry 96 08/02/23 08:45 Oxygen Delivery Method Room Air 08/02/23 08:45 <Geoffrey Levy MD - Last Filed: 08/04/23 16:24> Initial Vital Signs Temperature 97.9 F 08/02/23 06:13 Temperature Source Temporal Artery Scan 08/02/23 06:13 Pulse Rate 59 L 08/02/23 06:13 Respiratory Rate 16 08/02/23 06:13 Blood Pressure 131/78 08/02/23 06:13 Blood Pressure Mean 95 08/02/23 06:13 Pulse Oximetry 98 08/02/23 06:13 Oxygen Delivery Method Room Air 08/02/23 06:13 Vital Signs Temperature 97.9 F 08/02/23 06:13 Pulse Rate 59 L 08/02/23 06:13 Respiratory Rate 16 08/02/23 06:13 Blood Pressure 131/78 08/02/23 06:13 Pulse Oximetry 98 08/02/23 06:13 Oxygen Delivery Method Room Air 08/02/23 06:13 Temperature 98.9 F 08/02/23 08:45 Pulse Rate 62 08/02/23 08:45 Respiratory Rate 16 08/02/23 08:45 Blood Pressure 117/70 08/02/23 08:45 Pulse Oximetry 96 08/02/23 08:45 Oxygen Delivery Method Room Air 08/02/23 08:45 <Chris Mondragon MD - Last Filed: 08/02/23 09:11> MDM - Abdominal Pain MDM Narrative Medical decision making narrative: Patient is a 73-year-old woman with history of diverticulitis who presents with abdominal pain. Laboratory studies and exam were largely unremarkable. Did give her L of normal saline and currently her CT of the abdomen pelvis is pending. This will be followed up by my colleague. <Geoffrey Levy MD - Last Filed: 08/04/23 16:24> Patient is a 73-year-old woman with history of diverticulitis who presents with abdominal pain. Laboratory studies and exam were largely unremarkable. Did give her L of normal saline and currently her CT of the abdomen pelvis is pending. This will be followed up by my colleague. CT imaging returns with signs of early findings of diverticulitis. These findings were communicated with the patient. She states that she has taken Cipro in the past but had a rash so she received prescription for Augmentin instead. <Chris Mondragon MD - Last Filed: 08/02/23 09:11> Lab Data Labs: Lab Results 08/02/23 08/02/23 Range/Units 06:30 07:18 WBC 10.46 (4.50-11.00) K/uL RBC 4.67 (4.00-5.20) m/uL Hgb 13.8 (12.0-16.0) gm/dL Hct 42.6 (33.0-51.0) % MCV 91 (80-100) fL MCH 30 (26-34) pg MCHC 32 (32-36) gm/dL RDW Coeff of Eliana 12.2 (11.5-15.5) % Plt Count 203 (140-440) K/uL Neut % (Auto) 71.8 (42.0-72.0) % Lymph % (Auto) 18.1 L (20-44) % [place] % (Auto) 7.9 (0.0-11.0) % Eos % (Auto) 1.7 (0.0-7.0) % Baso % (Auto) 0.4 (0.0-3.0) % Neut # (Auto) 7.51 H (1.7-7.0) K/uL Lymph # (Auto) 1.90 (0.90-2.90) K/uL [place] # (Auto) 0.80 (0.00-0.90) K/UL Eos # (Auto) 0.18 (0.00-0.50) K/uL Baso # (Auto) 0.04 (0.00-0.30) K/uL Abs Immat Gran (auto) 0.01 (0.00-0.30) K/uL Imm/Tot Granulo (auto) 0.1 % Sodium 137 (135-149) mmol/L Potassium 3.7 (3.6-5.1) mmol/L Chloride 105 (96-114) mmol/L Carbon Dioxide 27 (20-32) mmol/L Anion Gap 5 L (7-15) mEq/L BUN 13 (7-30) mg/dL Creatinine 0.8 (0.5-1.5) mg/dL Estimated Creat Clear 40.81 Estimated GFR 79 ml/min Glucose 105 (60-115) mg/dL Calcium 8.4 (8.4-10.6) mg/dL Total Bilirubin 0.6 (0.1-1.5) mg/dL AST 27 (12-35) U/L ALT 25 (4-35) U/L Alkaline Phosphatase 75 (40-150) U/L Total Protein 6.9 (6.0-8.3) g/dL Albumin 4.1 (3.3-5.0) g/dL Amylase 103 H (18-89) U/L Urine Color Yellow (Yellow) Urine Appearance Clear (Clear) Urine pH 6.0 (5.0-8.5) Ur Specific [place] 1.010 (1.000-1.030) Urine Protein Negative (Negative) Urine Glucose (UA) Negative (Negative) Urine Ketones Negative (Negative) Urine Blood Trace-intact A (Negative) Urine Nitrite Negative (Negative) Urine Bilirubin Negative (Negative) Urine Urobilinogen 0.2 (0.2-1.0) Ur Leukocyte Esterase Trace A (Negative) Urine RBC 0-2 (0-2) Urine WBC 5-10 A (0-5) Ur Squamous Epith Cells Moderate A (None-Few) Urine Bacteria Few A (None) <Geoffrey Levy MD - Last Filed: 08/04/23 16:24> Lab Results 08/02/23 08/02/23 Range/Units 06:30 07:18 WBC 10.46 (4.50-11.00) K/uL RBC 4.67 (4.00-5.20) m/uL Hgb 13.8 (12.0-16.0) gm/dL Hct 42.6 (33.0-51.0) % MCV 91 (80-100) fL MCH 30 (26-34) pg MCHC 32 (32-36) gm/dL RDW Coeff of Eliana 12.2 (11.5-15.5) % Plt Count 203 (140-440) K/uL Neut % (Auto) 71.8 (42.0-72.0) % Lymph % (Auto) 18.1 L (20-44) % [place] % (Auto) 7.9 (0.0-11.0) % Eos % (Auto) 1.7 (0.0-7.0) % Baso % (Auto) 0.4 (0.0-3.0) % Neut # (Auto) 7.51 H (1.7-7.0) K/uL Lymph # (Auto) 1.90 (0.90-2.90) K/uL [place] # (Auto) 0.80 (0.00-0.90) K/UL Eos # (Auto) 0.18 (0.00-0.50) K/uL Baso # (Auto) 0.04 (0.00-0.30) K/uL Abs Immat Gran (auto) 0.01 (0.00-0.30) K/uL Imm/Tot Granulo (auto) 0.1 % Sodium 137 (135-149) mmol/L Potassium 3.7 (3.6-5.1) mmol/L Chloride 105 (96-114) mmol/L Carbon Dioxide 27 (20-32) mmol/L Anion Gap 5 L (7-15) mEq/L BUN 13 (7-30) mg/dL Creatinine 0.8 (0.5-1.5) mg/dL Estimated Creat Clear 40.81 Estimated GFR 79 ml/min Glucose 105 (60-115) mg/dL Calcium 8.4 (8.4-10.6) mg/dL Total Bilirubin 0.6 (0.1-1.5) mg/dL AST 27 (12-35) U/L ALT 25 (4-35) U/L Alkaline Phosphatase 75 (40-150) U/L Total Protein 6.9 (6.0-8.3) g/dL Albumin 4.1 (3.3-5.0) g/dL Amylase 103 H (18-89) U/L Urine Color Yellow (Yellow) Urine Appearance Clear (Clear) Urine pH 6.0 (5.0-8.5) Ur Specific [place] 1.010 (1.000-1.030) Urine Protein Negative (Negative) Urine Glucose (UA) Negative (Negative) Urine Ketones Negative (Negative) Urine Blood Trace-intact A (Negative) Urine Nitrite Negative (Negative) Urine Bilirubin Negative (Negative) Urine Urobilinogen 0.2 (0.2-1.0) Ur Leukocyte Esterase Trace A (Negative) Urine RBC 0-2 (0-2) Urine WBC 5-10 A (0-5) Ur Squamous Epith Cells Moderate A (None-Few) Urine Bacteria Few A (None) <Chris Mondragon MD - Last Filed: 08/02/23 09:11> Discharge Plan Discharge Clinical Impression: Diverticulitis <Geoffrey Levy MD - Last Filed: 08/04/23 16:24> Patient Disposition: Home, Self-Care <Geoffrey Levy MD - Last Filed: 12/25/23 16:24> Condition: Stable <Geoffrey Levy MD - Last Filed: 08/04/23 16:24> Instructions: Diverticulitis (DC) <Geoffrey Levy MD - Last Filed: 08/04/23 16:24> Additional Instructions: Take medication as prescribed. Activity as tolerated. Increase diet as tolerated. Follow up with MD return if worsening. <Geoffrey Levy MD - Last Filed: 08/04/23 16:24> Prescriptions: New amoxicillin-pot clavulanate 875-125 mg tablet 1 tab PO BID Qty: 20 0RF No Action clobetasol 0.05 % ointment 2 - 3 applic TOPICAL QWEEK Patient Comments: APPLY 2 TO 3 NIGHTS WEEKLY ON VULVA colestipol 1 gram tablet 2 g PO BID Patient Comments: TAKE 2 TABLETS BY MOUTH TWICE DAILY SWALLOWING WHOLE WITH ANY LIQUID. DO NOT CRUSH, CHEW, OR DIVIDE levothyroxine 88 mcg tablet 88 mcg PO DAILY Patient Comments: TAKE 1 TABLET (88 MCG) BY MOUTH BEFORE BREAKFAST. Zyrtec 10 mg capsule 10 mg PO DAILY lisinopril 10 mg tablet 10 mg PO DAILY rosuvastatin 10 mg tablet 10 mg PO QPM <Geoffrey Levy MD - Last Filed: 08/04/23 16:24> Follow Up/Referrals: Myra Escamilla MD [Primary Care Provider] - <Geoffrey Levy MD - Last Filed: 08/04/23 16:24> Stand Alone Forms: My[facility] Info Instructions <Geoffrey Levy MD - Last Filed: 08/04/23 16:24>
[2023-08-02 06:22] VITALS: O2SAT 98
[2023-08-02 06:37] LABS: Basophils Absolute Auto 0.04 K/uL (0.00-0.30); Basophils Percent Auto 0.4 % (0.0-3.0); Eosinophils Absolute Auto 0.18 K/uL (0.00-0.50); Eosinophils Percent Auto 1.7 % (0.0-7.0); Hematocrit 42.6 % (33.0-51.0); Hemoglobin* 13.8 gm/dL (12.0-16.0); Immature Granulocytes Abs Auto 0.01 K/uL (0.00-0.30); Immature Granulocytes Pct Auto 0.1 %; Lymphocytes Percent Auto 18.1 % (20-44); Mean Corpuscular HGB Conc 32 gm/dL (32-36); Mean Corpuscular Hemoglobin 30 pg (26-34); Mean Corpuscular Volume 91 fL (80-100); Monocytes Percent Auto 7.9 % (0.0-11.0); Neutrophils Absolute Auto 7.51 K/uL (1.7-7.0); Neutrophils Percent Auto 71.8 % (42.0-72.0); Platelet Count* 203 K/uL (140-440); RDW Coefficient of Variation % 12.2 % (11.5-15.5); Red Blood Count 4.67 m/uL (4.00-5.20); White Blood Count* 10.46 K/uL (4.50-11.00)
[2023-08-02 06:39] LABS: Slide Review Reflex No
[2023-08-02 06:48] LABS: Albumin* 4.1 g/dL (3.3-5.0)
[2023-08-02 06:49] LABS: Chloride* 105 mmol/L (96-114); Potassium* 3.7 mmol/L (3.6-5.1); Sodium* 137 mmol/L (135-149)
[2023-08-02 06:51] LABS: Amylase* 103 U/L (18-89); Anion Gap 5 mEq/L (7-15); Aspartate Amino Transferase* 27 U/L (12-35); Bilirubin Total* 0.6 mg/dL (0.1-1.5); Carbon Dioxide* 27 mmol/L (20-32); Creatinine* 0.8 mg/dL (0.5-1.5); Est. Creatinine Clearance* 40.81; Estimated Glomerular Filt Rate 79 ml/min; Total Protein* 6.9 g/dL (6.0-8.3)
[2023-08-02 06:52] LABS: Alanine Aminotransferase* 25 U/L (4-35); Alkaline Phosphatase* 75 U/L (40-150); Blood Urea Nitrogen* 13 mg/dL (7-30); Calcium* 8.4 mg/dL (8.4-10.6); Glucose* 105 mg/dL (60-115)
[2023-08-02 07:24] LABS: Appearance Urine Clear (Clear); Bilirubin Urine Negative (Negative); Blood Urine Trace-intact (Negative); Color Urine Yellow (Yellow); Glucose Urine Negative (Negative); Ketones Urine Negative (Negative); Leukocyte Esterase Urine Trace (Negative); Nitrite Urine Negative (Negative); Protein Urine Negative (Negative); Urobilinogen Urine 0.2 (0.2-1.0)
[2023-08-02 07:25] VITALS: BP 127/74; PULSE 63; RESP 16; O2SAT 98
[2023-08-02 07:34] LABS: Bacteria Urine Few; RBC Urine 0-2 (0-2); Squamous Epithelial Cell Urine Moderate (None-Few)
[2023-08-02 08:45] VITALS: BP 117/70; PULSE 62; RESP 16; TEMP 37.2; O2SAT 96
== END 2023-08-02 09:22 | disposition home or self-care (01) ==
PROVIDERS: Emergency Provider Internal Medicine; PCP Family Medicine
DX: K57.92 Diverticulitis of intestine, part unspecified, without perforation or abscess without bleeding (principal)
CPT/HCPCS: 36415; 74177; 80053; 81003; 81015; 82150; 85025; 87086; 94761; 99283; 99284; Q9967

== ENCOUNTER 2024-07-12 16:48 | Emergency (ER) | payer MEDICARE, BC, SELFPAY ==
[2024-07-12 16:59] VITALS: BP 128/94; PULSE 83; RESP 16; TEMP 36.3; O2SAT 98; BMI 25.9
--- NOTE | 2024-07-12 17:18 | ED_ITS ---
HPI - Nausea/Vomiting/Diarrhea General Chief complaint: Nausea/Vomiting Stated complaint: Vomiting, Diarrhea Time Seen by Provider: 07/12/24 16:56 History of Present Illness HPI Narrative: This 74-year-old female comes in reporting vomiting and diarrhea beginning this morning. She states that she began to feel ill when she was in the shower this morning. Soon after that she had a rather large bowel movement and since then has had nausea, vomiting, and diarrhea. She does not report any fevers or blood in the toilet. She does not have any abdominal pain except some lower abdominal pain briefly when having diarrhea. Related Data Home Medications ?Medication ?Instructions ?Recorded ?Confirmed cetirizine 10 mg capsule (Zyrtec) 10 mg PO DAILY 07/09/22 11/13/22 clobetasol 0.05 % topical ointment 2 - 3 applic topical QWEEK 07/09/22 11/13/22 colestipol 1 gram tablet 2 g PO BID 07/09/22 11/13/22 levothyroxine 88 mcg tablet 88 mcg PO DAILY 07/09/22 11/13/22 lisinopril 10 mg tablet 10 mg PO DAILY 11/13/22 11/13/22 rosuvastatin 10 mg tablet 10 mg PO QPM 11/13/22 11/13/22 Previous Rx's ?Medication ?Instructions ?Recorded amoxicillin 875 mg-potassium 1 tab PO BID #20 tabs 08/02/23 clavulanate 125 mg tablet Allergies Allergy/AdvReac Type Severity Reaction Status Date / Time ciprofloxacin Allergy Intermediate Hives Verified 11/13/22 04:07 morphine AdvReac Mild Vomiting, Verified 11/13/22 04:07 Dizziness naproxen AdvReac Mild GI Upset Verified 11/13/22 04:07 oxycodone AdvReac Mild GI Upset Verified 11/13/22 04:07 tramadol AdvReac Mild GI Upset Verified 11/13/22 04:07 Review of Systems Status of ROS: Reports: 10 or more systems reviewed and unremarkable except as noted in History and below Narrative: Constitutional: No fevers, no weight gain or loss. Eyes: No discharge. No vision changes. HENT: No congestion, no sore throat, no ear pain. Cardiovascular: No chest pain, no palpitations. Respiratory: No shortness of breath, no wheezes, no cough. Gastrointestinal: Nausea, vomiting, and diarrhea as described above. Genitourinary: No dysuria, no hematuria. Musculoskeletal: Normal range of motion. Skin: No rashes, no pruritis. Neurological: No dizziness, weakness, sensory change, speech change. Endo/Heme/Allergies: No bruising or bleeding. No polydipsia. Pysch: no suicidality, no anxiety, no insomnia. All other systems reviewed and are negative. 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) Surgical History History of hemilaminectomy ?Z98.890 - Other specified postprocedural states (ICD-10) History of tonsillectomy ?Z90.89 - Acquired absence of other organs (ICD-10) History of endoscopy ?Z98.890 - Other specified postprocedural states (ICD-10) History of colonoscopy ?Z98.890 - Other specified postprocedural states (ICD-10) History of section ?Z98.891 - History of uterine scar from previous surgery (ICD-10) Hx of cholecystectomy ?Z90.49 - Acquired absence of other specified parts of digestive tract (ICD- 10) Social History Smoking Status: Never smoker Do you use any of these nicotine containing products: None Second hand tobacco smoke exposure: No How often do you have a drink containing alcohol: never How often do you have six or more drinks on one occasion: Never AUDIT-C Alcohol total score: 0 Non-prescribed substance use: denies use Exam Narrative: Exam Narrative: Constitutional: Well-developed, well-nourished, no acute distress. HEENT: Normocephalic, atraumatic. Neck: Normal range of motion. Nontender. Supple. Heart: Regular. No murmurs. Normal rate. Intact distal pulses. Lungs: Clear to auscultation. No chest discomfort. No wheezes, rhonchi, or rales. Abdomen: Normal bowel sounds. Nontender. No rebound tenderness. Genitalia: Deferred. Back: No midline tenderness. Normal range of motion. Extremities: Normal range of motion. No injury. Skin: Intact. No rash. Warm. No erythema or pallor. Neurologic: No altered sensation. No weakness. Alert and oriented. Psychiatric: No suicidality. No anxiety or depression. No insomnia. Nursing notes and vitals signs are reviewed. Const: Vital Signs, click to edit/add: Vital Signs - 24 hr 07/12/24 16:59 Temperature 97.3 F L Pulse Rate [Pulse Oximeter] 83 Respiratory Rate 16 Blood Pressure [Ri ght Upper Arm] 128/94 H Pulse Oximetry 98 Oxygen Delivery Me thod Room Air Course Vital Signs Vital signs: Initial Vital Signs Temperature 97.3 F L 07/12/24 16:59 Temperature Source Temporal Artery Scan 07/12/24 16:59 Pulse Rate 83 07/12/24 16:59 Respiratory Rate 16 07/12/24 16:59 Blood Pressure 128/94 H 07/12/24 16:59 Blood Pressure Mean 105 07/12/24 16:59 Blood Pressure Position Supine 07/12/24 16:59 Pulse Oximetry 98 07/12/24 16:59 Oxygen Delivery Method Room Air 07/12/24 16:59 Vital Signs Temperature 97.3 F L 07/12/24 16:59 Pulse Rate 83 07/12/24 16:59 Respiratory Rate 16 07/12/24 16:59 Blood Pressure 128/94 H 07/12/24 16:59 Pulse Oximetry 98 07/12/24 16:59 Oxygen Delivery Method Room Air 07/12/24 16:59 Temperature 97.3 F L 07/12/24 16:59 Pulse Rate 83 07/12/24 16:59 Respiratory Rate 16 07/12/24 16:59 Blood Pressure 128/94 H 07/12/24 16:59 Pulse Oximetry 98 07/12/24 16:59 Oxygen Delivery Method Room Air 07/12/24 16:59 Medications Administered Medications: Generic Name Dose Route Start Last Admin Trade Name Rob PRN Reason Stop Dose Admin Sodium Chloride 500 mls @ 500 mls/hr 07/12/24 18:18 07/12/24 18:22 0.9 % Sodium Chloride 500 Ml IV 07/12/24 19:17 500 mls/hr .Q1H ONE Administration Discontinued Medications Generic Name Dose Route Start Last Admin Trade Name Rob PRN Reason Stop Dose Admin Sodium Chloride 500 mls @ 500 mls/hr 07/12/24 17:17 07/12/24 18:22 0.9 % Sodium Chloride 500 Ml IV 07/12/24 18:16 Infused .Q1H ONE Infusion Ondansetron HCl 4 mg 07/12/24 17:17 07/12/24 17:30 Ondansetron 2 Mg/Ml Inj IVP 07/12/24 17:18 4 mg ONCE ONE Administration MDM - Nausea/Vomiting/Diarrhea MDM Narrative Medical decision making narrative: This patient comes in with nausea, vomiting, and diarrhea as described above. She arrives with normal vital signs. She states that she has a dry mouth. She does not report any fevers and does not have any abdominal pain currently. An IV was established where she received 2 500 mL bags of IV fluid. She also receives Zofran. She has not had any further nausea or vomiting. She did have 1 visit to the toilet with some diarrhea. Labs are acquired and these returned with reassuring results. Her white count is at the upper edge of normal. Her electrolytes are returning with normal findings. She states that she is feeling better with these treatments. She is okay to be discharged home. I did provide an [facility] prescription for Zofran. Lab Data Labs: Lab Results 07/12/24 Range/Units 17:30 WBC 11.60 H (4.50-11.00) K/uL RBC 5.28 H (4.00-5.20) m/uL Hgb 15.5 (12.0-16.0) gm/dL Hct 47.9 (33.0-51.0) % MCV 91 (80-100) fL MCH 29 (26-34) pg MCHC 32 (32-36) gm/dL RDW Coeff of Eliana 13.1 (11.5-15.5) % Plt Count 213 (140-440) K/uL Neut % (Auto) 93.6 H (42.0-72.0) % Lymph % (Auto) 3.4 L (20-44) % [place] % (Auto) 2.5 (0.0-11.0) % Eos % (Auto) 0.3 (0.0-7.0) % Baso % (Auto) 0.1 (0.0-3.0) % Neut # (Auto) 10.90 H (1.7-7.0) K/uL Lymph # (Auto) 0.40 L (0.90-2.90) K/uL [place] # (Auto) 0.30 (0.00-0.90) K/UL Eos # (Auto) 0.00 (0.00-0.50) K/uL Baso # (Auto) 0.00 (0.00-0.30) K/uL Abs Immat Gran (auto) 0.00 (0.00-0.30) K/uL Imm/Tot Granulo (auto) 0.1 % Sodium 138 (135-149) mmol/L Potassium 4.3 (3.6-5.1) mmol/L Chloride 109 (96-114) mmol/L Carbon Dioxide 19 L (20-32) mmol/L Anion Gap 10 (7-15) mEq/L BUN 15 (7-30) mg/dL Creatinine 0.8 (0.5-1.5) mg/dL Estimated Creat Clear 42.07 Estimated GFR 78 ml/min Glucose 124 H (60-115) mg/dL Calcium 9.4 (8.4-10.6) mg/dL Discharge Plan Discharge Clinical Impression: Gastroenteritis Patient Disposition: Home, Self-Care Condition: Improved Additional Instructions: Take frequent sips of fluids and use medication as needed and directed. Increase diet as tolerated. Follow up with MD return if worsening. Prescriptions: No Action clobetasol 0.05 % ointment 2 - 3 applic TOPICAL QWEEK Patient Comments: APPLY 2 TO 3 NIGHTS WEEKLY ON VULVA colestipol 1 gram tablet 2 g PO BID Patient Comments: TAKE 2 TABLETS BY MOUTH TWICE DAILY SWALLOWING WHOLE WITH ANY LIQUID. DO NOT CRUSH, CHEW, OR DIVIDE levothyroxine 88 mcg tablet 88 mcg PO DAILY Patient Comments: TAKE 1 TABLET (88 MCG) BY MOUTH BEFORE BREAKFAST. Zyrtec 10 mg capsule 10 mg PO DAILY lisinopril 10 mg tablet 10 mg PO DAILY rosuvastatin 10 mg tablet 10 mg PO QPM amoxicillin-pot clavulanate 875-125 mg tablet 1 tab PO BID Qty: 20 0RF Follow Up/Referrals: Myra Escamilla MD [Primary Care Provider] - Stand Alone Forms[facility] Inst[facility]
[2024-07-12] MEDS: 0.9 % SODIUM CHLORIDE 500 ML 500 ML IV ×2 (17:30→18:22)
[2024-07-12] MEDS: ONDANSETRON 2 MG/ML inj 4 MG IVP (17:30)
[2024-07-12 17:42] LABS: Basophils Percent Auto 0.1 % (0.0-3.0); Eosinophils Percent Auto 0.3 % (0.0-7.0); Hematocrit 47.9 % (33.0-51.0); Hemoglobin* 15.5 gm/dL (12.0-16.0); Immature Granulocytes Pct Auto 0.1 %; Lymphocytes Percent Auto 3.4 % (20-44); Mean Corpuscular HGB Conc 32 gm/dL (32-36); Mean Corpuscular Hemoglobin 29 pg (26-34); Mean Corpuscular Volume 91 fL (80-100); Monocytes Percent Auto 2.5 % (0.0-11.0); Neutrophils Percent Auto 93.6 % (42.0-72.0); Platelet Count* 213 K/uL (140-440); RDW Coefficient of Variation % 13.1 % (11.5-15.5); Red Blood Count 5.28 m/uL (4.00-5.20)
--- OUTSIDE RECORDS SUMMARY | 2024-07-12 17:46 | XMS_ITS | Clinical Summary ---
Author Organization [facility] Address [place], [place] [address] Care Team Providers Care Hardboard Supervisor Name Role Phone Sandee Damon MD Unavailable Myra Escamilla MD Primary Care Provider [phone] Rebecca Flynn MD Unavailable Nyasia Villa NP Unavailable Allergies Active Allergy Reactions Criticality Noted Date Comments Ciprofloxacin Rash 01/02/2021 House Dust Other - Describe In Comment Field 06/30/2017 Sneezes Mold Other - Describe In Comment Field 06/30/2017 sneezes Morphine Dizziness,Vomiting 04/23/2022 Naproxen GI Upset High 05/25/2018 Oxycodone GI Upset High 05/14/2018 Tramadol GI Upset High 05/25/2018 [employer] And Shrub Pollen Headache Medications Medication Sig Dispensed Refills Start Date End Date Status cetirizine (ZYRTEC) 10 mg TbDi Take 1 tablet by mouth once daily. Active multivitamin (MVI) tablet Take 1 tablet by mouth once daily. 0 06/30/2017 Active calcium carbonate/vitamin D2 (CALCIUM 600 + D ORAL) Take 1 tablet by mouth 2 times daily. Active lisinopriL (PRINIVIL; ZESTRIL) 10 mg tabletIndications:HTN (hypertension) Take 1 Tablet (10 mg) by mouth once daily. 90 Tablet 3 09/04/2023 Active rosuvastatin (CRESTOR) 10 mg tabletIndications:Hype rlipidemia, unspecified hyperlipidemia type Take 1 Tablet (10 mg) by mouth at bedtime. 90 Tablet 3 09/04/2023 Active clobetasol 0.05% (TEMOVATE 0.05% OINTMENT) 0.05 % ointmentIndications:Jane chino sclerosus of female genitalia Use 2-3 nights/week on vulva 60 g 4 09/04/2023 Active colestipoL (Colestid) 1 gram tabletIndications:S/P cholecystectomy Take 1 Tablet (1 g) by mouth once daily. 90 Tablet 3 09/04/2023 Active benzonatate (Tessalon Perles) 100 mg capsuleIndications:Bro nchitis with bronchospasm Take 1 Capsule (100 mg) by mouth 3 times daily if needed for Cough. 30 Capsule 09/29/2023 Active codeine-guaiFENesin (ROBITUSSIN AC) 10-100 mg/5 mL liquidIndications:Bron chitis with bronchospasm Take 5 mL by mouth at bedtime if needed for Cough. Max dose 60 mL per 24 hrs. 60 mL 10/01/2023 Active fluconazole (DIFLUCAN) 150 mg tabletIndications:Anti biotic-induced yeast infection Take 150mg by mouth x 1 dose, may repeat dose in 3 days if symptoms persist. 2 Tablet 10/29/2023 Active levothyroxine (SYNTHROID) 100 mcg tabletIndications:Hypo thyroidism (acquired) Take 1 Tablet (100 mcg) by mouth before breakfast. 90 Tablet 3 11/28/2023 Active Active Problems Problem Noted Date Diagnosed Date Sensorineural hearing loss (SNHL) of both ears 0 02/27/2024 Chronic diarrhea 02/27/2024 History of diverticulitis of colon 02/27/2024 Prediabetes 10/09/2023 Impaired fasting glucose 09/04/2023 Raynaud's phenomenon without gangrene 09/04/2023 Lichen sclerosus of female genitalia 09/04/2023 Iliotibial band tendonitis of left side 08/09/20 Lichen sclerosus of vulva 08/15/2021 Hypothyroidism (acquired) 08/15/2021 HTN (hypertension) 08/15/2021 Hyperlipidemia 08/15/2021 Osteopenia 04/24/2015 Sleep disorder Overview (04/05/2013): narcolepsy variant ZHENG (obstructive sleep apnea) Overview (04/05/2013): uses dental appliance Allergic rhinitis Resolved Problems Problem Noted Date Diagnosed Date Resolved Date Family history of Gaucher disease 04/05/2013 08/15/2021 Overview (04/05/2013): 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, 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, at 9 months Encounters Date Type Department Care Team Description 06/11/2024 11:15 AM CDT Nurse/Clinic Staff Only [facility] [address] [place] [address] Immunization/Injecti on 06/11/2024 Travel 06/09/2024 Travel 06/02/2024 8:45 AM CDT Office Visit [facility] [address] [place] [address] Jonathan Castaneda, DPMerry Consult (Left foot pain) 06/02/2024 Travel 05/31/2024 7:45 AM CDT Office Visit [facility] [address] [place] [address] Whit Pak PA Sinus Problem 05/31/2024 Travel 05/30/2024 Travel from Last 3 Months Immunizations Name Administration Dates Next Due Amb Influenza, Inact (High-d ose Quadrivalent) (Flu Clinic Only) 05/02/2020 COVID-19 vaccine (W[place]o NTEncore.fm 30mcg/0.3mL) JESSICA MARTINEZ 05/17/2021,10/02/2020,09/08/2020 Hepatitis B (Adult) 04/29/2017,11/15/2016,201611/15/2016 Influenza RIV4 (Age 18+ Year s) PRESERV FREE 05/19/2019 Influenza, High-dose Inactivated 05/19/2019 Influenza, High-dose Quadriv alent Inactivated 05/14/2021 Influenza, IIV3 (Age >=3 years) 06/27/20 11,07/03/2010,05/10/2009,06/21 Influenza, IIV4 05/20/2016,04/24/2015,04/15/2014 Influenza, Inactivated AIIV4 (Age 65+ Years) Preserv Free 06/02/2023,06/04/2022 Influenza, Inactivated IIV3 (Age 65+ Years) Preserv Free 06/11/2024,07/06/2018,04/29/2017 Pneumococcal Poly,23-Valent (Pneumovax) 07/06/2018 Pneumococcal conj 13-Valent (Prevnar 13) 04/29/2017 Td (Age >=7 Years) 08/28/2004 Tdap 04/15/2014 Tuberculin (PPD) 10/15/2016 Zoster (Shingrix-RZV, recombinant) 12/08/2018, Zoster (Zostavax-ZVL, live) 05/20/2016 Family History Medical History Relation Name Comments Cancer Brother 1 bladder Hypertension Brother 1 Arthritis Father Cancer-colon Father Hyperlipidemia Mother Hypertension Mother Other Mother osteopenia Cancer-breast Paternal Aunt Cancer-breast Sister Migraines Sister Other Sister osteopenia Anesthesia Problem No Family History Blood Disease No Family History Cancer-ovarian No Family History Relation Name Status Comments Brother 1 Alive Brother 2 Alive Daughter 1 Sheron-41 Alive Daughter 2 36 Alive Daughter 3 36 Alive Father Mother Paternal Aunt Sister Alive Social History Tobacco Use Types Packs/Day Years Used Date Smoking Tobacco: Never Smokeless Tobacco: Never Tobacco Cessation:Counseling Given: Yes Alcohol Use Standard Drinks/Week Comments Yes 0.8 (1 standard drink = 0.6 oz p ure alcohol) occassional PHQ-2 Answer Date Recorded PHQ-2 TOTAL SCORE 0 09/04/2023 Social Connections Answer Date Recorded Do you often feel lonely or isolated from those around you? 0 09/04/2023 Financial Resource Strain Answer Date R ecorded Difficulty of Paying Living Expenses 3 09/04/2023 Difficulty of Paying Living Expenses Not on file 09/04/2023 Food Insecurity Answer Date Recorded Do you worry your food will run out before you are able to buy more? 1 09/04/2023 Transportation Needs Answer Date Record ed Does lack of transportation keep you from medica l appointments? 1 09/04/2023 Does lack of transportation keep you from work, meetings or getting things that you need? 1 09/04/2023 Housing Stability Answer Date Recorded What is your housing situation today? 1 09/04/2023 Sex and Gender Information Value Date Recorded Sex Assigned at Not on file Gender Identity Not on file Sexual Orientation Not on file Obstetrics History Para Term AB IAB SAB Ectopic Multiple Livin g Live Births 5 3 3 2 1 3 Date Outcome GA Total Labor Labor/2nd/3rd Weight Sex Type Anes PTL Irina A1 A5 Name Clin Term Term Comments: at 9 mon ths AB AB Term Comments:twin Comments G2: gaucher's disease in fam ge Last Filed Vital Signs Vital Sign Reading Time Taken Comments Blood Pressure 110/72 06/02/2024 9:02 AM CDT Pulse 73 06/02/2024 9:02 AM CDT Temperature 36.5 C (97.7 F) 10/29/2023 1:50 PM CDT Respiratory Rate 16 10/29/2023 1:50 PM CDT Oxygen Saturation 96% 06/02/2024 9:02 AM CDT Inhaled Oxygen Concentration - - Weight 71.4 kg (157 lb 6.4 oz) 05/31/2024 7:49 A M CDT Height 159.4 cm (5' 2.76) 09/04/2023 12:[address] Body Mass Index 28.1 09/04/2023 12:46 PM VETERINARY ASSISTANT Plan of Treatment Upcoming Encounters Date Type Department Care Team (Late st Contact Info) Description 09/08/2024 1:35 PM VETERINARY ASSISTANT Office Visit [facility] [address] [place] [address] Myra Escamilla MD [address] [place] [address] Health Maintenance Due Date Last Done Comments COVID-19 vaccine series ( season) 2024 05/17/2021, 10/02/2020, 09/08/2020 Tetanus booster 04/15/2024 04/15/2014, 08/28/2004 Mammogram for age 45-75 09/01/2024 09/01/19 24, 08/27/2022, 08/15/2021, Additional history exists BMI (ht and wt on same day) for age 18+ 09/04/2024 09/04/2023, 05/20/2023, 08/30/2022, Additional history exists Medicare Wellness for age 65+ 09/04/2024, 08/30/2022, 08/15/2021, Additional history exists Depression screening for age 12+ 09/05/2024 09/05/2023, 09/04/2023, 08/30/2022, Additional history exists Colonoscopy through age 75 07/10/202707/10, 07/10/2022, 07/10/2022, Additional history exists Lipids for age 45-75 08/27/2028 08/27/2023, 07/25/2022, 08/09/2021, Additional history exists Tdap Completed 04/15/2014 Pneumococcal series for age 65+ Completed 8, 04/29/2017 Zoster (shingles) series for age 50+ Completed 12/08/2018, 07/06/2018, 05/20/2016 Hepatitis C screening for ag e 18-79 Completed 08/29/2020 DEXA/DXA scan for age 65+ Completed 2021, 07/21/2017, 05/09/2015, Additional history exists Influenza for age 65+ Completed 06/11/2024 , 06/02/2023, 06/04/2022, Additional history exists Procedures Procedure Name Priority Date/Time Associated Diagnosis Comments XR MAMMO SHAI BILAT SCREEN Routine 09/01/2023 8:36 AM VETERINARY ASSISTANT Visit for screening mammogram LIPID PANEL W REFLEX MEASURED LDL Routine 08/27/2023 7:45 AM VETERINARY ASSISTANT Hyperlipidemia, unspecified hyperlipidemia type SCAN-COLONOSCOPY 07/10/2022 11:0 0 AM VETERINARY ASSISTANT XR DXA BONE DENSITY 2 SITES AXIAL Routine 08/15/2021 1:17 PM VETERINARY ASSISTANT Osteopenia, unspecified location Menopause ANTI HCV Routine 08/29/2020 9:17 AM VETERINARY ASSISTANT Need for hepatitis C screening test from Last 3 Months or Most Recently Relevant to Health Maintenance Results * XR MAMMO SHAI BILAT SCREEN (09/01/2023 8:36 AM VETERINARY ASSISTANT) Anatomical Region Laterality Modality BREASTS, Breast Left, Breast Right Bilateral Mammography Impressions 09/01/2023 2:38 PM VETERINARY ASSISTANT There is no radiographic evidence for malignancy. Recommend annual mammograms. MAMMOGRAM ASSESSMENT: ACR 1 Negative PATIENTS: You will also receive a letter with your examination results in an easy to read format. If you have questions about your results, please contact your referring provider. Narrative 09/01/2023 2:38 PM VETERINARY ASSISTANT For Patients: As a result of the Century Cures Act, medical imaging exams and procedure reports are released immediately into your electronic medical record. You may view this report before your referring provider. If you have questions, please contact your health care provider. XR MAMMO SHAI BILAT SCREEN [[id number]] CLINICAL HISTORY: This is an asymptomatic 73 y.o. patient. INDICATION FOR EXAM: Mammogram Screening. TECHNIQUE: CC & MLO views were obtained. This study was evaluated with the assistance of Computer-Aided Detection. Breast Tomosynthesis was used in interpretation. COMPARISON FILM: Yes 08/27/22 [facility] 08/15/21 [facility] FINDINGS: The breasts are heterogeneously dense, which may obscure small masses. There are no dominant masses, suspicious micro calcifications or areas of architectural distortion. Myra Escamilla MD MAMMO * LIPID PANEL W REFLEX MEASURED LDL (08/27/2023 7:45 AM VETERINARY ASSISTANT) CHOLESTEROL,TOTAL 168 100 - 199 mg/dL 08/27/2023 3:28 PM [facility] Comment: Cholesterol, Total Reference Ranges Desirable <200 mg/dL Borderline 200-239 mg/dL High >=240 mg/dL TRIGLYCERIDES 55 <150 mg/dL 08/27/2023 3:28 PM [facility] HDL CHOLESTEROL 89 >40 mg/dL 3:28 PM [facility] NON-HDL CHOLESTEROL 79 <145 mg/dl 08/27/2023 3:28 PM [facility] CHOL/HDL RATIO 1.89 <4.50 08/27/2023 3:28 PM VETERINARY ASSISTANT [facility] LDL CHOLESTEROL 68 <=130 mg/dL 08/27/2023 3:28 PM VETERINARY ASSISTANT [facility] VLDL CHOLESTEROL 11 <=30 mg/dL 08/27/2023 3:28 PM VETERINARY ASSISTANT [facility] PROVIDER ORDERED STATUS RANDOM 08/27/2023 3:28 PM VETERINARY ASSISTANT [facility] Blood BLOOD SPECIMEN / Unknown Venipuncture / Unknown 08/27/2023 7:45 AM VETERINARY ASSISTANT 08/27/2023 7:45 AM VETERINARY ASSISTANT Myra Escamilla MD [facility] [address] [place] [address], * SCAN-COLONOSCOPY (07/10/2022 11:00 AM VETERINARY ASSISTANT) Narrative Procedure Note Sebastian Irwin DO - 07/10/2022 9:25 AM CST [facility], [address], [address], [place] [address] Patient Name: Janina Bermudez Gender: Female Exam Date: 07/10/2022 Visit Number: [id number] Age: 72 Years Date of : 1950 Attending MD: Sebastian Irwin DO Medical Record#: [id number] Procedure: Colonoscopy Indications: Diarrhea Referring MD: Referral Self Primary MD: Myra Escamilla MD Medications: Admitting Medications: 0.9% Normal Saline at O Ondansetron Hydrochloride (Zofran) given 4mg by IV Intra Procedure Medications: Patient received monitored anesthesia care. Complications: No immediate complications Procedure: An examination of the heart and lungs was performed and found to be withinacceptable limits. . The patient was therefore deemed a reasonablecandidate for endoscopy and sedation. The risks and benefits of the procedure were explained to the patient.After obtaining informed consent, the patient received monitoredanesthesia care and I passed the scope without difficulty via the rectum to the ileum. The appendiceal orificeand ic valve were identified. The scope was retroflexed during theexamination The quality of the prep was excellent (Miralax/Gatorade/2tablets Bisacodyl/Magnesium Citrate). This was a complete examination throughout the entire colon. Findings: Normal finding. Location - ileum - cecum - ascending colon - transversecolon - descending colon - sigmoid - rectum. Random biopsies obtained with cold forceps from the terminal ileum andrandom colon. Diverticulosis of the sigmoid colon. Internal hemorrhoids. Anal canal: internal hemorrhoid(s) Impression: Enteritis MD impression comments: -No macroscopic findings to explain patient's symptoms noted. Small boweland colon biopsies obtained Preliminary Plan: The patient and their physician will receive a copy of the pathologyreport as well as pathology-based recommendations for future screening orsurveillance. Procedure: Upper GI Endoscopy Indications: Abdominal Pain/Dyspepsia Provider: Sebastian Irwin DO Referring MD: Referral Self Primary MD: Myra Escamilla MD Medications: Admitting Medication: 0.9% Normal Saline at TKO Ondansetron Hydrochloride (Zofran) given 4mg by IV Intra Procedure Medications: Patient received monitored anesthesia care. Complications: No immediate complications Procedure: An examination of the heart and lungs was performed within acceptablelimits. . The patient was therefore deemed a reasonable candidate forsedation. The risks and benefits were explained to the patient, who appeared tounderstand. After obtaining informed consent, the scope was passed underdirect vision. Throughout the procedure the patient's blood pressure,pulse and oxygen saturations were monitored. The scope was introducedthrough the mouth and advanced to the third portion of duodenum. Findings: Esophagus: The z-line is 38 centimeters from the incisors. Top of the gastric foldsis 38 centimeters from the incisors. Stomach: Normal stomach. H. Pylori biopsies taken. The diaphragm hiatus is at 41 centimeters from the incisors. *Stomach Comments: Small fundic gland polyps noted. Duodenum: Normal duodenum. Celiac Sprue biopsies taken. Celiac Sprue biopsies taken. Impression: Intermittent diarrhea Impression Comments: No macroscopic findings to explain patient's symptoms noted today on EGD.Small bowel and gastric biopsies obtained. Small hiatal hernia. The hiatalhernia is no the cause of Ms Bermudez's symptoms. Pathology Results: A: SMALL BOWEL, BIOPSY: 1. Normal duodenal mucosa 2. Negative for celiac disease and other enteropathy B: STOMACH, BIOPSY: 1. Normal gastric antral and body mucosae 2. Negative for Helicobacter C: ILEUM, TERMINAL, BIOPSY: 1. Normal ileal mucosa 2. Negative for active and chronic ileitis D: COLON, RANDOM, BIOPSY: 1. Normal colonic mucosa 2. Negative for microscopic, active, and chronic colitis MICROSCOPIC A: Performed B: Performed C: Performed D: Performed Electronically signed by: [place] [address] Orders Instruction(s)/Education: Instruction/Education Timeframe Assessment Colon Cancer Prevention R19.7 Hemorrhoids (Internal) R19.7 High Fiber Diet R19.7 _Electronically signed by: Sebastian Irwin DO 07/10/2022 cc: Myra Escamilla MD cc: Myra Escamilla MD Sebastian Irwin DO OTHER * (ABNORMAL) XR DXA BONE DENSITY 2 SITES AXIAL (08/15/2021 1:17 PM VETERINARY ASSISTANT) Anatomical Region Laterality Modality Spine, HIPS, HIPL, HIPR Other Impressions 08/20/2021 8:27 AM VETERINARY ASSISTANT Osteopenia. RECOMMENDATIONS: The National Osteoporosis Foundation recommends pharmacologic treatment for patients with T-scores of -2.5 or less, patients with prior history of fragility fractures, or patients with 10-year probability of greater than 3% at hips or greater than 20% of suffering major osteoporotic fractures. Recommend continued optimization of calcium and vitamin D intake through dietary means and/or supplementation and regular exercise. Repeat scan recommended in 3-5 years. Josie Rosas PA-C [facility] 08/20/2021 Narrative 08/20/2021 8:27 AM VETERINARY ASSISTANT For Patients: Results are automatically released to your [facility] ([employer]) account once available, in compliance with federal regulations. This means that you may see your results before your provider has had a chance to review them. Please allow 2-3 business days for your provider to comment on the results. XR DXA Bone Mineral Density (BMD) EXAM LOCATION: [address] [address] PATIENT NAME: Janina Bermudez DATE OF : 1950 EXAM DATE: 08/15/2021 REQUESTING PROVIDER: Myra Escamilla MD GENDER AT : female HEIGHT: 5' 2.84 (08/15/2021) WEIGHT: 156 lb (08/15/2021) MENOPAUSAL STATUS: Postmenopausal RACE/ETHNICITY: White RISK FACTORS: White Race CURRENT MEDICATION FOR BONE LOSS: OTC Calcium INDICATION: Follow-up of existing osteopenia and Menopause COMPARISON DATE(S): 2014 and 2016 DXA scans are compared to prior studies for a patient only when the two (or more) studies were performed on the same scanner. It is not possible to compare data generated on one scanner to data from another because there are not standards in DXA equipment. This applies even if the two scanners are made by the same mining manager. PROCEDURE: Dual-energy x-ray absorptiometry performed with routine technique. Reporting is completed in the form of a T-score. The T-score represents the standard deviation from peak bone mass based on young healthy adult. A Z-score is used for diagnosis in premenopausal women, and for men under the age of 50. FINDINGS: RESULT LUMBAR SPINE L1 - L4 BMD: 0.997 g/cm2 T-Score: - 1.5 Z-Score: - 0.1 Change from prior in 2014: Decrease 0.4%. RESULTS FEMUR Left femoral neck BMD: 0.778 g/cm2 T-Score: - 1.9 Z-Score: - 0.3 Change from prior in 2017: Decrease 2.0%. Right femoral neck BMD: 0.775 g/cm2 T-Score: - 1.9 Z-Score: - 0.4 Change from prior in 2017: Decrease 4.8%. Left hip BMD: 0.893 g/cm2 T-Score: - 0.9 Z-Score: + 0.4 Change from prior in 2017: Decrease 2.4%. Right hip BMD: 0.884 g/cm2 T-Score: - 1.0 Z-Score: + 0.3 Change from prior in 2017: Decrease 3.8%. WHO criteria: Normal: T-score at or above -1 SD Osteopenia: T-score between -1.1 and -2.4 SD Osteoporosis: T-score at or below -2.5 SD FRAX RISK CALCULATION (USED FOR OSTEOPENIA ONLY): 10-year probability of major osteoporotic fracture: 11.2%. 10-year probability of hip fracture: 2.0%. Myra Escamilla MD DEXA * ANTI HCV (08/29/2020 9:17 AM VETERINARY ASSISTANT) HEPATITIS C ANTIBODY Non-React daniel Non-React daniel 08/29/2020 6:14 PM VETERINARY ASSISTANT [facility] Comment:Antibodies to HCV no t detected; does not exclude the possibility of exposure to HCV. Blood BLOOD SPECIMEN / Unknown Venipuncture / Unknown 08/29/2020 9:17 AM VETERINARY ASSISTANT 08/29/2020 9:20 AM VETERINARY ASSISTANT Masha Benton MD SEND OUTS [facility] [address] [place] [address], [place] from Last 3 Months or Most Recently Relevant to Health Maintenance Advance Directives Documents on File Type Date Recorded Patient Process Technician Expl anation Healthcare Directive 12/18/2020 021 * Full Code (Latest Code Status on File) Date Activated Date Inactivated Comments 04/24/2018 8:04 AM 04/24/2018 6:17 PM Care Teams Hardboard Supervisor Relationship Specialty Start Date End Date Myra Escamilla MD [address] [place] [address] PCP - General Family Practice 08/15/21 Sandee Damon MD Rheumatology Rheumatology 03/19/19 Rebecca Flynn MD [address] [place] [address] Hematology Hematology and Oncology 04/22/22 Nyasia Villa NP [address] [place] [address] Nurse Practitioner Hematology and Oncology 04/22/22
[2024-07-12 17:47] LABS: Slide Review Reflex No
[2024-07-12 18:07] LABS: Chloride* 109 mmol/L (96-114); Potassium* 4.3 mmol/L (3.6-5.1); Sodium* 138 mmol/L (135-149)
[2024-07-12 18:10] LABS: Anion Gap 10 mEq/L (7-15); Blood Urea Nitrogen* 15 mg/dL (7-30); Calcium* 9.4 mg/dL (8.4-10.6); Carbon Dioxide* 19 mmol/L (20-32); Creatinine* 0.8 mg/dL (0.5-1.5); Est. Creatinine Clearance* 42.07; Estimated Glomerular Filt Rate 78 ml/min; Glucose* 124 mg/dL (60-115)
[2024-07-12 18:56] VITALS: BP 105/60; PULSE 75; RESP 16; O2SAT 97
--- OUTSIDE RECORDS SUMMARY | 2024-07-12 21:42 | XMS_ITS | Clinical Summary ---
Author Organization [facility] Address [place], [place] [address] Care Team Providers Care Electrode Turner And Finisher Name Role Phone Sandee Damon MD Unavailable Myra Escamilla MD Primary Care Provider [phone] Rebecca Flynn MD Unavailable [phone] Nyasia Villa NP Unavailable Allergies Active Allergy [...] 06/11/2024 11:15 AM CDT Nurse/Clinic Staff Only [facility] [address] [place] [address] Immunization/Injecti on 06/11/2024 Travel 06/09/2024 Travel 06/02/2024 8:45 AM CDT Office Visit [facility] [address] [place] [address] Jonathan Castaneda, DPMerry Consult (Left foot pain) 06/02/2024 Travel 05/31/2024 7:45 AM CDT Office Visit [facility] [address] [place] [address] Whit Pak PA Sinus Problem 05/31/2024 Travel 05/30/2024 Travel from Last 3 Months Immunizations Name Administration Dates Next Due Amb Influenza, Inact (High-d ose Quadrivalent) (Flu Clinic Only) 05/02/2020 COVID-19 vaccine ([facility] NTS[facility]ish 30mcg/0.3mL) JESSICA MARTINEZ 05/17/2021,10/02/2020,09/08/2020 Hepatitis B (Adult) [...] Body Mass Index 28.1 09/04/2023 12:46 PM MEASURER MACHINE Plan of Treatment Upcoming Encounters Date Type Department Care Team (Late st Contact Info) Description 09/08/2024 1:35 PM MEASURER MACHINE Office Visit [facility] [address] [place] [address] Myra Escamilla MD [address] [place] [address] Health Maintenance Due Date Last Done Comments [...] SHAI BILAT SCREEN Routine 09/01/2023 8:36 AM MEASURER MACHINE Visit for screening mammogram LIPID PANEL W REFLEX MEASURED LDL Routine 08/27/2023 7:45 AM MEASURER MACHINE Hyperlipidemia, unspecified hyperlipidemia type SCAN-COLONOSCOPY 07/10/2022 11:0 0 AM MEASURER MACHINE XR DXA BONE DENSITY 2 SITES AXIAL Routine 08/15/2021 1:17 PM MEASURER MACHINE Osteopenia, unspecified location Menopause ANTI HCV Routine 08/29/2020 9:17 AM MEASURER MACHINE Need for hepatitis C screening test from Last 3 Months or Most Recently Relevant to Health Maintenance Results * XR MAMMO SHAI BILAT SCREEN (09/01/2023 8:36 AM MEASURER MACHINE) Anatomical Region Laterality Modality BREASTS, Breast Left, Breast Right Bilateral Mammography Impressions 09/01/2023 2:38 PM MEASURER MACHINE There is no radiographic evidence for malignancy. Recommend annual mammograms. MAMMOGRAM ASSESSMENT: ACR 1 Negative PATIENTS: You will also receive a letter with your examination results in an easy to read format. If you have questions about your results, please contact your referring provider. Narrative 09/01/2023 2:38 PM MEASURER MACHINE For Patients: As a result of the Century Cures Act, medical imaging exams and procedure reports are released immediately into your electronic medical record. You may view this report before your referring provider. If you have questions, please contact your health care provider. XR MAMMO SHAI BILAT SCREEN [[id number]] CLINICAL HISTORY: This is an asymptomatic 73 y.o. patient. INDICATION FOR EXAM: Mammogram Screening. TECHNIQUE: CC & MLO views were obtained. This study was evaluated with the assistance of Computer-Aided Detection. Breast Tomosynthesis was used in interpretation. COMPARISON FILM: Yes 08/27/22 [facility] 08/15/21 [facility] [employer] FINDINGS: The breasts are heterogeneously dense, which may obscure small masses. There are no dominant masses, suspicious micro calcifications or areas of architectural distortion. Myra Escamilla MD MAMMO * LIPID PANEL W REFLEX MEASURED LDL (08/27/2023 7:45 AM MEASURER MACHINE) CHOLESTEROL,TOTAL 168 100 - 199 mg/dL 08/27/2023 3:[address] [facility] Comment: Cholesterol, Total Reference Ranges Desirable <200 mg/dL Borderline 200-239 mg/dL High >=240 mg/dL TRIGLYCERIDES 55 <150 mg/dL 08/27/2023 3:[address] [facility] HDL CHOLESTEROL 89 >40 mg/dL 3:28 PM [facility] NON-HDL CHOLESTEROL 79 <145 mg/dl 08/27/2023 3:28 PM [facility] CHOL/HDL RATIO 1.89 <4.50 08/27/2023 3:28 PM MEASURER MACHINE [facility] LDL CHOLESTEROL 68 <=130 mg/dL 08/27/2023 3:28 PM MEASURER MACHINE [facility] VLDL CHOLESTEROL 11 <=30 mg/dL 08/27/2023 3:28 PM MEASURER MACHINE [facility] PROVIDER ORDERED STATUS RANDOM 08/27/2023 3:28 PM MEASURER MACHINE [facility] Blood BLOOD SPECIMEN / Unknown Venipuncture / Unknown 08/27/2023 7:45 AM MEASURER MACHINE 08/27/2023 7:45 AM MEASURER MACHINE Myra Escamilla MD [facility] [address] [place] [address], * SCAN-COLONOSCOPY (07/10/2022 11:00 AM MEASURER MACHINE) Narrative Procedure Note Sebastian Irwin DO - 07/10/2022 9:25 AM CST [facility], [address], [address], [place] [address] Patient Name: Janina Bermudez Gender: Female Exam Date: 07/10/2022 Visit Number: [id number] Age: 72 Years Date of : 1950 Attending MD: Sebastian Irwin DO Medical Record#: [id number] Procedure: Colonoscopy Indications: Diarrhea Referring MD: Referral [...] signed by: Clint [place] [address] Orders Instruction(s)/Education: Instruction/Education Timeframe Assessment Colon Cancer Prevention R19.7 Hemorrhoids (Internal) R19.7 High Fiber Diet R19.7 _Electronically signed by: Sebastian Irwin DO 07/10/2022 cc: Myra Escamilla MD cc: Myra Escamilla MD Sebastian Irwin DO OTHER * (ABNORMAL) XR DXA BONE DENSITY 2 SITES AXIAL (08/15/2021 1:17 PM MEASURER MACHINE) Anatomical Region Laterality Modality Spine, HIPS, HIPL, HIPR Other Impressions 08/20/2021 8:27 AM MEASURER MACHINE Osteopenia. RECOMMENDATIONS: The National Osteoporosis Foundation recommends [...] recommended in 3-5 years. Josie Rosas PA-C [facility] 08/20/2021 Narrative 08/20/2021 8:27 AM MEASURER MACHINE For Patients: Results are automatically released to your [facility] ([employer] account once available, in compliance with federal regulations. This means that you may see your results before your provider has had a chance to review them. Please allow 2-3 business days for your provider to comment on the results. XR DXA Bone Mineral Density (BMD) EXAM LOCATION: [address] [address] PATIENT NAME: Janina Bermudez DATE OF : [...] two scanners are made by the same management nurse rn. PROCEDURE: Dual-energy x-ray absorptiometry performed with routine [...] DEXA * ANTI HCV (08/29/2020 9:17 AM MEASURER MACHINE) HEPATITIS C ANTIBODY Non-React daniel Non-React daniel 08/29/2020 6:14 PM MEASURER MACHINE [facility] Comment:Antibodies to HCV no t detected; does not exclude the possibility of exposure to HCV. Blood BLOOD SPECIMEN / Unknown Venipuncture / Unknown 08/29/2020 9:17 AM MEASURER MACHINE 08/29/2020 9:20 AM MEASURER MACHINE Masha Benton MD SEND OUTS [facility] [address] [place] [address], [place] from Last 3 Months or Most Recently Relevant to Health Maintenance Advance Directives Documents on File Type Date Recorded Patient Access Manager Expl anation Healthcare Directive 12/18/2020 021 * Full Code (Latest Code Status on File) Date Activated Date Inactivated Comments 04/24/2018 8:04 AM 04/24/2018 6:17 PM Care Teams Electrode Turner And Finisher Relationship Specialty Start Date End Date Myra Escamilla MD [address] [place] [address] PCP - General Family Practice 08/15/21 Sandee Damon MD Rheumatology Rheumatology 03/19/19 Rebecca Flynn MD [address] [place] [address] Hematology Hematology and Oncology 04/22/22 Nyasia Villa NP [address] [place] [address] Nurse Practitioner Hematology and Oncology 04/22/22
== END 2024-07-12 19:01 | disposition home or self-care (01) ==
PROVIDERS: Emergency Provider Emergency Medicine Emergency Medical Services; PCP Family Medicine
DX: K52.9 Noninfective gastroenteritis and colitis, unspecified (principal)
CPT/HCPCS: 36415; 80048; 85025; 96361; 96374; 99284; J2405; J7030

== ENCOUNTER 2025-07-03 20:46 | Emergency (ER) | payer MEDICARE, BC, SELFPAY ==
--- OUTSIDE RECORDS SUMMARY | 2022-07-10 05:01 | XMS_ITS | Continuity of Care Document ---
Author Organization [facility] Address [address] [address] [place] [address] Care Team Providers Care Carpenter Mate Name Role Phone [place], [place] Unavailable Unav ailable Procedures Procedure Date Ugi En Colono Advance Directives Directive Yes / No Effective Date File Name No Information Encounters Encounter Description Practice Location Reason(s) For Visit Diagnoses Date Provider Providers Copied on Encounter [facility], [address] [address], [place], [place], [id number], [facility] [place] [facility] No Information [facility]. [address] [address], [place], [place], [id number], . tel:[phone] Referring Provider: Sebastian KRUSE, [address], [place], [address] . tel:[phone] Family History Family Member Type Diagnosis Age At Onset No Information Payers Payer name Insurance type Covered democrat ID Authoriza tion(s) Blue [employer] [place] [employer] [place] [id number] Social History Type Description Quantity Date Captured Comments Sex Female Smoking Status No Information Chief Complaint And Reason For Visit No Information Reason For Referral Reason For Referral No Information History Of Present Illness Encounter Date Complaint History Of Prese nt Illness No Information Functional Status Date Functional Assessmen t No Information Instructions Date Instruction Additional Infor mation No Information Assessments Type Assessment Date No Information Patient Care Teams Name Effective Dates (start - stop) Status Members No Information
--- OUTSIDE RECORDS SUMMARY | 2022-07-10 05:01 | XMS_ITS | Continuity of Care Document ---
Author Organization [facility] Address [address] [address] [place] [address] Care Team Providers Care Rater Associate Name Role Phone [place], [place] Unavailable Unav ailable Procedures Procedure Date Ugi En Colono Advance Directives Directive Yes / No Effective Date File Name No Information Encounters Encounter Description Practice Location Reason(s) For Visit Diagnoses Date Provider Providers Copied on Encounter [facility], [address] [address], [place], [place], [id number], [facility] No Information [facility]. [address] [address], [place], [place], [id number], . tel:[phone] Referring Provider: Sebastian KRUSE, [address] [facility] [address], [place], [address] . tel:[phone] Family History Family Member Type Diagnosis Age At Onset No Information Payers Payer name Insurance type Covered green party ID Authoriza tion(s) [employer] [place] [employer] BL [id number] Social History Type Description Quantity Date Captured [...]
--- OUTSIDE RECORDS SUMMARY | 2022-09-30 02:53 | XMS_ITS | Continuity of Care Document ---
Author Organization [facility] Address [address] [address] [place] [address] Phone Care Team Providers Care Scow Derrick Operator Name Role Phone Adarsh Cazares MD Unavailable Unavailable Allergies, Adverse Reactions, Alerts Substance Reaction Status Criticality CIPROFLOXACIN HCL Rash Active No Informa tion morphine Nausea/Vomiting Active No Informati on oxycodone Nausea/Vomiting Active No Informati on Medications Medication Instructions Dosage Effective Dates (start - stop) Status Comments Colestid 1 gram tablet take 1 tablet by oral route every day swallowing whole with any liquid. Do not crush, chew and/or divide. 1 G - Active disregard previous Rx sent. 6 mo supply sent lisinopril 10 mg tablet take 1 tablet by oral route every day 10 MG - Active rosuvastatin 10 mg tablet take 1 tablet by oral route every day 10 MG - Active Calcium 600 mg calcium (1,500 mg) tablet - Active clobetasol 0.05 % topical ointment apply by topical route 2 times every day a thin layer to the affected area(s) 0.00 - Active levothyroxine 88 mcg tablet take 1 tablet by oral route every day 88 MCG - Active Zyrtec 10 mg tablet take 1 tablet by oral route every day 10 MG - Active Colestid 1 gram tablet take 1 tablet by oral route every day swallowing whole with any liquid. Do not crush, chew and/or divide. 1 G - No Longer Active Colestid 1 gram tablet take 1 tablet by oral route every day swallowing whole with any liquid. Do not crush, chew and/or divide. 1 G - No Longer Active Procedures Procedure Date Offic/outpt E&m Estab Mod-hi 2 22 Colonoscopy Flex; W/bx 1/mx Ugi Endo; W/bx 1/mx Level Iv-surg Path Gross/micro Offic/outpt E&m New Mod-nd Advance Directives Directive Yes / No Effective Date File Name No Information Encounters Encounter Description Practice Location Reason(s) For Visit Diagnoses Date Provider Providers Copied on Encounter [facility] [address] [address], [place], [id number], [place] tel:[phone] [facility] No Information 3 Sage Altamirano. [address] [facility] [facility] [address], [place], [place], [address] , [place]. tel:[phone] Offic/outpt E&m [facility] Mod-nd 2 [facility] [address] [address], [place], [id number], [place] tel:[phone] [facility] GI Symptoms or Concerns (chief complaint) Abdominal lymphadenopathySy ncope, unspecified syncope type 2 Sage Altamirano. [address] [facility], [facility] [address], [place], [place], [address] , [place]. [phone] Myra Escamilla MD. tel:[phone] erring Provider: Referral Self, USE FOR SELF REFERRALS. [facility] [address] [address], [place], [id number], [place] tel:[phone] [facility] GI Symptoms or Concerns (chief complaint) Intermittent diarrheaEnteritis Noninfective gastroenteritis and colitis, unspecified 2 Alida Hodgson. [address] [facility], [address], [place], [place], [address] , [place]. tel:[phone] Myra Escamilla MD. tel:[phone] erring Provider: Referral Self, USE FOR SELF REFERRALS. Offic/outpt E&m New Mod-hi [facility], [address] [address], [place], [place], [address], tel:[phone] [facility] GI Symptoms or Concerns (chief complaint) Abdominal lymphadenopathyIn termittent diarrheaEnteritis Sep-2 2 Sage Altamirano. [address] [facility], [address], [place], [place], [address] , [place]. [phone] Referring Provider: Myra Escamilla MD, [address] [place] [address], [address]. tel:[phone] [facility], [address] [address], [place], [place], [address], [place] tel:[phone] [facility] No Information Apr-0 2 Leo Malone. [address] [facility], [address], [place], [place], [address] , [place]. tel:[phone] Family History Family Member Type Diagnosis Age At Onset Sister Problem (finding) Cancer, breast Father Problem (finding) Colon polyps Mother Problem (finding) Diverticular disease Brother Problem (finding) Cancer, bladder Father Problem (finding) Cancer, colon Brother Problem (finding) Colon polyps Immunizations Vaccine Date Status Comments SARS-COV-2 (COVID-19) vaccin e, mRNA, spike protein, LNP, preservative free, 30 mcg/0.3mL dose administered Note: [facility] bi-direct ional interface ; Source: Other Registry influenza, high-dose seasona l, quadrivalent, .7mL dose, preservative free administered Note: [facility] bi-direct ional interface ; Source: Other Registry SARS-COV-2 (COVID-19) vaccin e, mRNA, spike protein, LNP, preservative free, 30 mcg/0.3mL dose administered Note: [facility] bi-direct ional interface ; Source: Other Registry SARS-COV-2 (COVID-19) vaccin e, mRNA, spike protein, LNP, preservative free, 30 mcg/0.3mL dose administered Note: [facility] bi-direct ional interface ; Source: Other Registry Seasonal, quadrivalent, recombinant, injectable influenza vaccine, preservative free administered Note: [facility] bi-direct ional interface ; Source: Other Registry zoster vaccine recombinant administered N ote: [facility] bi-directional interface ; Source: Other Registry Seasonal trivalent influenza vaccine, adjuvanted, preservative free administered Note: [facility] bi-direct ional interface ; Source: Other Registry Pneumovax 23 administered Note: [facility] bi-d irectional interface ; Source: Other Registry Prevnar 13 administered Note: [facility] bi-d irectional interface ; Source: Other Registry Seasonal trivalent influenza vaccine, adjuvanted, preservative free administered Note: [facility] bi-direct ional interface ; Source: Other Registry Engerix-B administered Note: [facility] bi-d irectional interface ; Source: Other Registry Engerix-B administered Note: [facility] bi-d irectional interface ; Source: Other Registry Engerix-B administered Note: [facility] bi-d irectional interface ; Source: Other Registry zoster vaccine, live administered Note: [facility] bi-directional interface ; Source: Other Registry Afluria Qd administered Note: [facility] bi-directional interface ; Source: Other Registry Afluria Qd administered Note: [facility] bi-directional interface ; Source: Other Registry Afluria Qd administered Note: [facility] bi-directional interface ; Source: Other Registry tetanus toxoid, reduced diphtheria toxoid, and acellular pertussis vaccine, adsorbed administered Note: [facility] b i-directional interface ; Source: Other Registry Influenza, seasonal, injecta ble, preservative free administered Note: [facility] bi-direct ional interface ; Source: Other Registry Influenza, seasonal, injectable administe red Note: [facility] bi- directional interface ; Source: Other Registry Influenza, seasonal, injectable administe red Note: [employer] bi- directional interface ; Source: Other Registry Payers Payer name Insurance type Covered libertarian ID Terrance sanders(s) Tesfaye NAVAS [id number] Social History Type Description Quantity Date Captured Comments Alcohol Use Details Unknown Caffeine Use Details Unknown Tobacco Use Status No Information Smoking Status No Information Sex Female Chief Complaint And Reason For Visit No Information Reason For Referral Reason For Referral No Information Plan Of Treatment Date Type Action Status Referral Ordered: Colonoscopy Appointment date/timeframe: 07/10/2022 ordered History Of Present Illness Encounter Date Complaint History Of Prese nt Illness GI Symptoms or Concerns Ms. Miki awad is a very pleasant 72-year-old female, who I originally saw on 05/08/2022 and now returns for followup. She was seen at that time for recent onset abdominal pain and lymphadenopathy. Her symptoms had started in February and underwent a CT scan at that time that revealed evidence of lymphadenitis with the largest lymph node being around 11 meters. Around that time, she had also had an episode of diarrhea and [place], which required IV hydration. Subsequently had a CT scan again on April 09 that revealed evidence of persistent lymphadenopathy along with a pocket of fluid in the right lower quadrant. It was thought that this possibly represented a gastrointestinal infection, but to rule out a malignant cause and given her abdominal pain, she was recommended an upper endoscopy and colonoscopy.For her diarrhea, at that time, I have recommended her to go back on Colestid, and she was able to tolerate a dose of 1 gram daily with good effect. GI Symptoms or Concerns GI Symptoms or Concerns Ms. Miki awad is a very pleasant 72-year-old female with a past medical history significant for Maxine's and family history of colon cancer for which she has 5 yearly colonoscopies, who presents to establish care following recent onset abdominal pain and lymphadenopathy. The patient reports that in the February, she started noticing abdominal pain in the epigastrium and extending to the left and the right with bending forward. She underwent a CT scan that revealed evidence of lymphadenitis with the largest lymph node being around 11 mm. Around that time, she had also had an episode where she had diarrhea and had a syncopal episode on a golf course following which she required IV hydration and had to call an ambulance. Reports that she had testing done in the hospital and took several blood checks for them to be able to discharge and although it is not clear what was the lab abnormality noted on the blood work. She was eventually discharged and was seen by her primary care doctor Functional Status Date Functional Assessmen t No Information Medications Administered Medication Instructions Dosage Effective Dates (start - stop) Status Comments Colestid 1 gram tablet take 1 tablet by oral route every day swallowing whole with any liquid. Do not crush, chew and/or divide. 1 G - No Longer Active Instructions Date Instruction Additional Infor jag Therefore we agreed on the following plan.1. No GI workup is indicated at this time given normal endoscopy as well as complete resolution of symptoms.2. Continue colestipol at 1 gram daily with lunch, so she does not have to modify her thyroxine and calcium doses which she takes with other meals.3. Return to clinic as needed.4. Discussed with primary care doctor regarding workup for syncope.5. Continue to watch for symptoms that could suggest an underlying lymphoma, even though we are several months out from the CT scan demonstrating lymphadenopathy. Related to Abdominal lymphadenopathy Colon Cancer Prevention Related to Intermittent diarrhea Hemorrhoids (Internal) Related t o Intermittent diarrhea High Fiber Diet Related to Inter mittent diarrhea -Resume colestid-EGD /Colonoscopy to be done Related to Abdominal lymphadenopathy Assessments Type Assessment Date No Information Patient Care Teams Name Effective Dates (start - stop) Status Members No Information
--- OUTSIDE RECORDS SUMMARY | 2022-09-30 02:53 | XMS_ITS | Continuity of Care Document ---
Author Organization [facility] Address [address] [address] [place] [address] Phone Care Team Providers Care Prop Sawyer Name Role Phone Adarsh Cazares MD Unavailable [...] Level Iv-surg Path Gross/micro Offic/outpt E&m New Mod-id Advance Directives Directive Yes / No Effective Date File Name No Information Encounters Encounter Description Practice Location Reason(s) For Visit Diagnoses Date Provider Providers Copied on Encounter [facility] [address] [address], [place], [id number], [place] tel:[phone] [facility] No Information 3 Sage Altamirano. [address] [facility] [address], [place], [place], [address] , [place]. tel:[phone] Offic/outpt E&m [facility] Mod-id 2 [facility] [address] [address], [place], [id number], [place] tel:[phone] [facility] GI Symptoms or Concerns (chief complaint) Abdominal lymphadenopathySy ncope, unspecified syncope type 2 Sage Altamirano. [address] [facility], [facility], [facility] [address], [place], [place], [address] , [place]. [phone] Myra Escamilla MD. tel:[phone] erring Provider: Referral Self, USE FOR SELF REFERRALS. [facility] [address] [address], [place], [address], [place] tel:[phone] [facility] GI Symptoms or Concerns (chief complaint) Intermittent diarrheaEnteritis Noninfective gastroenteritis and colitis, unspecified 2 Alida Hodgson. [address] [facility], [address], [place], [place], [address] , [place]. tel:[phone] Myra Escamilla MD. tel:[phone] erring Provider: Referral Self, USE FOR SELF REFERRALS. Offic/outpt E&m New Mod-hi [facility], [address] [address], [place], [place], [address], tel:[phone] [facility] GI Symptoms or Concerns (chief complaint) Abdominal lymphadenopathyIn termittent diarrheaEnteritis Sep-2 2 Sage Altamirano. [address] [facility], [address], [place], [place], [address] , [place]. [phone] Referring Provider: Myra Escamilla MD, [address] [place] [address], [address]. tel:[phone] [facility], [address] [address], [place], [place], [address], [place] tel:[phone] [facility] No Information Apr-0 2 Leo Malone. [address] [facility], [address], [place], [place], [address] , [place]. tel:[phone] Family History Family Member Type Diagnosis Age [...] Registry Influenza, seasonal, injectable administe red Note: [email or web address] bi- directional interface ; Source: Other Registry Payers Payer name Insurance type Covered democrat ID Terrance sanders(s) Tesfaye NAVAS [id number] Social History Type Description Quantity Date Captured [...]
--- OUTSIDE RECORDS SUMMARY | 2025-07-03 20:49 | XMS_ITS | CCD ---
Author Name Interface, [id number] Address [address] [place] [address] Oncology Address [address] [place] [id number] Reason for Visit Social History Date Name Value 04/09/2025 Sex Female
--- OUTSIDE RECORDS SUMMARY | 2025-07-03 20:49 | XMS_ITS | Clinical Summary ---
Author Organization [employer] Address [address] [place] [id number] Care Team Providers Care Aircraft Dispatcher Name Role Phone Sandee Damon MD Unavailable [phone] Myra Escamilla MD Primary Care Provider Rebecca Flynn MD Unavailable Nyasia Villa NP Unavailable Allergies Active Allergy Reactions Criticality Noted Date Comments Ciprofloxacin Rash 01/02/2021 House Dust Other - Describe In Comment Field 06/30/2017 Sneezes Mold Other - Describe In Comment Field 06/30/2017 sneezes Morphine Dizziness,Vomiting 04/23/2022 Naproxen GI Upset High 05/25/2018 Oxycodone GI Upset High 05/14/2018 Tramadol GI Upset High 05/25/2018 Tree And Shrub Pollen Headache Medications cetirizine (ZYRTEC) 10 mg TbDi Take 1 tablet by mouth once daily. Active multivitamin (MVI) tablet Take 1 tablet by mouth once daily. 0 7 Active calcium carbonate/vitamin D2 (CALCIUM 600 + D ORAL) Take 1 tablet by mouth 2 times daily. Active codeine-guaiFENesin (ROBITUSSIN AC) 10-100 mg/5 mL liquidIndications:B ronchitis with bronchospasm Take 5 mL by mouth at bedtime if needed for Cough. Max dose 60 mL per 24 hrs. 60 mL 4 Active levothyroxine (SYNTHROID) 88 mcg tabletIndications:H ypothyroidism (acquired) Take 1 Tablet (88 mcg) by mouth before breakfast. 90 Tablet 3 5 Active lisinopriL (PRINIVIL; ZESTRIL) 10 mg tabletIndications:H TN (hypertension) Take 1 Tablet (10 mg) by mouth once daily. 90 Tablet 3 5 Active colestipoL (Colestid) 1 gram tabletIndications:S /P cholecystectomy Take 1 Tablet (1 g) by mouth once daily. 90 Tablet 3 5 Active clobetasol (TEMOVATE) 0.05 % ointmentIndications :Lichen sclerosus of female genitalia Use 2-3 nights/week on vulva 60 g 4 5 Active rosuvastatin (CRESTOR) 10 mg tabletIndications:H yperlipidemia, unspecified hyperlipidemia type TAKE 1 TABLET BY MOUTH EVERYDAY AT BEDTIME 90 Tablet 5 Active Active Problems Problem Noted Date Diagnosed [...] Encounters Date Type Department Care Team Description 05/18/2025 Refill [facility] [address] [facility] [address] Myra Escamilla MD Refill Request (Rosuvastatin) 04/12/2025 9:30 AM CDT Office Visit [facility] [address] [facility] [address] Whit Pak PA UTI (urgency, frequency, odorous urine (started today)) 04/12/2025 Travel from Last 3 Months Immunizations Immunization Administration Dates Next Due Amb Influenza, Inact (High-d ose Quadrivalent) (Flu Clinic Only) 05/02/2020 COVID-19 vaccine ([employer] 30mcg/0.3mL) JESSICA MARTINEZ 05/17/2021,10/02/2020,09/08/2020 Hepatitis B (Adult) [...] Answer Date Recorded PHQ-2 TOTAL SCORE 0 09/08/2024 Social Connections Answer Date Recorded Do you often feel lonely or isolated from those around you? 0 09/08/2024 Financial Resource Strain Answer Date R ecorded Difficulty of Paying Living Expenses 3 09/08/2024 Difficulty of Paying Living Expenses Not on file 09/08/2024 Food Insecurity Answer Date Recorded Do you worry your food will run out before you are able to buy more? 1 09/08/2024 Transportation Needs Answer Date Record ed Does lack of transportation keep you from medica l appointments? 1 09/08/2024 Does lack of transportation keep you from work, meetings or getting things that you need? 1 09/08/2024 Housing Stability Answer Date Recorded What is your housing situation today? 1 09/08/2024 Utilities Answer Date Recorded Do you have trouble paying f or utilities (for example, heat, electricity, water, phone)? 1 09/08/2024 Comments No Sex and Gender Information Value Date Recorded Sex Assigned at Not on file Legal Sex Female 6:34 AM GRADE FOREMAN Gender Identity Not on file Sexual Orientation [...] Sign Reading Time Taken Comments Blood Pressure 123/74 04/12/2025 9:28 AM CDT Pulse 72 04/12/2025 9:28 AM CDT Temperature 36.7 C (98.1 F) 04/12/2025 9:28 AM CDT Respiratory Rate 16 10/29/2023 1:50 PM CDT Oxygen Saturation 98% 04/12/2025 9:28 AM CDT Inhaled Oxygen Concentration - - Weight 67.9 kg (149 lb 9.6 oz) 04/12/2025 9:28 A M CDT Height 159 cm (5' 2.6) 09/08/2024 1:53 PM GRADE FOREMAN Body Mass Index 26.84 09/08/2024 1:53 PM GRADE FOREMAN Plan of Treatment Upcoming Encounters Date Type Department Care Team (Late st Contact Info) Description 09/12/2025 9:15 AM GRADE FOREMAN Orders Only [address] [place] [address] [place], [place] 09/15/2025 8:40 AM GRADE FOREMAN Ancillary Procedure [facility] [address] [place] [address] 09/15/2025 9:10 AM GRADE FOREMAN Office Visit [facility] [address] [place] [address] Myra Escamilla MD [address] [place] [address] Health Maintenance Due Date Last Done Comments Tetanus booster 04/15/2024 04/15/2014, 08/28/2004 Influenza Vaccine (#1) 2025 , 06/02/2023, 06/04/2022, Additional history exists Mammogram for age 45-75 09/03/2025 09/03/19, 09/01/2023, 08/27/2022, Additional history exists BMI (ht and wt on same day) for age 18+ 09/08/2025 09/08/2024, 09/04/2023, 05/20/2023, Additional history exists Depression screening for age 12+ 09/08/2025 09/08/2024, 09/05/2023, 09/04/2023, Additional history exists Medicare Wellness for age 65+ 09/09/2025, 09/04/2023, 08/30/2022, Additional history exists RSV vaccine for adults or (1 - 1-dose 75+ series) 02/18/2027 Colonoscopy through age 75 07/10/202707/10, 07/10/2022, 07/10/2022, Additional history exists Lipids for age 45-75 08/25/2029 08/25/2024, 08/27/2023, 07/25/2022, Additional history exists Hepatitis B series for 19+ Completed 04/29, 11/15/2016, 10/15/2016 Pneumococcal series for age 50+ Completed 8, 04/29/2017 Zoster (shingles) series for age 50+ Completed 12/08/2018, 07/06/2018, 05/20/2016 Hepatitis C screening for ag e 18-79 Completed 08/29/2020 DEXA/DXA scan for age 65+ Completed 2021, 07/21/2017, 05/09/2015, Additional history exists Procedures Procedure Name Priority Date/Time Associated Diagnosis Comments URINALYSIS MICROSCOPIC Routine 04/12/2025 9:36 AM CDT Bad odor of urine URINE CULTURE Routine 04/12/2025 9:36 AM CDT Bad odor of urine URINALYSIS MACROSCOPIC - [facility] ONLY POC DIP ([facility]) Routine 04/12/2025 9:34 AM CDT Bad odor of urine XR MAMMO SHAI BILAT SCREEN Routine 09/03/2024 9:10 AM GRADE FOREMAN Visit for screening mammogram LIPID PANEL W REFLEX MEASURED LDL Routine 08/25/2024 9:14 AM GRADE FOREMAN Hyperlipidemia, unspecified hyperlipidemia type SCAN-COLONOSCOPY 07/10/2022 11:0 0 AM GRADE FOREMAN XR DXA BONE DENSITY 2 SITES AXIAL Routine 08/15/2021 1:17 PM GRADE FOREMAN Osteopenia, unspecified location Menopause ANTI HCV Routine 08/29/2020 9:17 AM GRADE FOREMAN Need for hepatitis C screening test from Last 3 Months or Most Recently Relevant to Health Maintenance Results * URINALYSIS MICROSCOPIC [34033.1] - routine (04/12/2025 9:36 AM CDT) RBC 0-2 0-2, None Seen /HPF 04/12/2025 4:49 PM CDT [facility] WBC 0-2 0-2, 3-5, None Seen /HPF 04/12/2025 4:49 PM CDT [facility] BACTERIA None Seen None Seen, Rare, Few Bacteria/ HPF 04/12/2025 4:49 PM CDT [facility] EPITHELIAL CELLS None Seen None Seen, Few Epi/HPF 04/12/2025 4:49 PM CDT [facility] HYALINE CASTS 0-2 0-2, 3-5 /LPF 04/12/2025 4:49 PM CDT [facility] Urine URINE SPECIMEN / Unknown Non-Blood / Unknown 04/12/2025 9:36 AM CDT 04/12/2025 9:36 AM CDT Whit TRACEY URINE Final Result [facility] [address] [place] [address], * URINE CULTURE [85840.2] (04/12/2025 9:36 AM CDT) CULTURE No growth (<1,000 CFU/mL) 04/13/2025 1:58 PM CDT [facility] Urine URINE SPECIMEN / Unknown Non-Blood / Unknown 04/12/2025 9:36 AM CDT 04/12/2025 9:36 AM CDT us Whit TRACEY MICROBIOLOGY Final Result [facility] [address] [place] [address], [place] * (ABNORMAL) POCT Urinalysis Dipstick Only [[id number]] (04/12/2025 9:34 AM CDT) SPECIFIC GRAVITY < OR = 1.005 1.001 - 1.035 04/12/2025 9:40 AM CDT [facility] Comment: Specific [place] values resulted are outside the analytical measurement range of this device. Recommend repeat/additional testing as clinically indicated. PROTEIN NEGATIVE NEGATIVE 04/12/2025 9:40 AM CDT [facility] GLUCOSE NEGATIVE NEGATIVE 04/12/2025 9:40 AM CDT [facility] KETONES NEGATIVE NEGATIVE 04/12/2025 9:40 AM CDT [facility] BILIRUBIN NEGATIVE NEGATIVE 04/12/2025 9:40 AM CDT [facility] OCCULT BLOOD TRACE(A) NEGATIVE 04/12/2025 9:40 AM CDT [facility] NITRITE NEGATIVE NEGATIVE 04/12/2025 9:40 AM CDT [facility] PH 6.0 5.0 - 8.0 04/12/2025 9:40 AM CDT [facility] LEUKOCYTE ESTERASE NEGATIVE NEGATIVE 04/12/2025 9:40 AM CDT [facility] Urine URINE SPECIMEN / Unknown Non-Blood / Unknown 04/12/2025 9:34 AM CDT 04/12/2025 9:34 AM CDT Whit TRACEY URINE Final Result [facility] [address] [address], [place] [phone] [facility] [address] [place] [address], [place] [phone] * XR MAMMO SHAI BILAT SCREEN (09/03/2024 9:10 AM GRADE FOREMAN) Anatomical Region Laterality Modality BREASTS, Breast Left, Breast Right Bilateral Mammography Impressions 09/06/2024 1:12 PM GRADE FOREMAN There is no radiographic evidence for malignancy. Recommend annual mammograms. MAMMOGRAM ASSESSMENT: ACR 1 Negative PATIENTS: You will also receive a letter with your examination results in an easy to read format. If you have questions about your results, please contact your referring provider. Narrative 09/06/2024 1:12 PM GRADE FOREMAN For Patients: As a result of the Century Cures Act, medical imaging exams and procedure reports are released immediately into your electronic medical record. You may view this report before your referring provider. If you have questions, please contact your health care provider. XR MAMMO SHAI BILAT SCREEN [[id number]] CLINICAL HISTORY: This is an asymptomatic 74 y.o. patient. INDICATION FOR EXAM: Mammogram Screening. TECHNIQUE: CC & MLO views were obtained. This study was evaluated with the assistance of Computer-Aided Detection. Breast Tomosynthesis was used in interpretation. COMPARISON FILM: Yes 09/01/23 [facility] 08/27/22 [facility] FINDINGS: The breasts are heterogeneously dense, which may obscure small masses. There are no dominant masses, suspicious micro calcifications or areas of architectural distortion. us Myra Escamilla MD MAMMO Final Resul t * LIPID PANEL W REFLEX MEASURED LDL (08/25/2024 9:14 AM GRADE FOREMAN) CHOLESTEROL, TOTAL 143 <200 mg/dL [facility] HDL CHOLESTEROL 69 > OR = 50 mg/dL [facility] TRIGLYCERIDES 54 <150 mg/dL [facility] LDL-CHOLESTEROL 61 mg/dL (calc) [facility] Comment: Reference range: <100 Desirable range <100 mg/dL for primary prevention; <70 mg/dL for patients with CHD or diabetic patients with > or = 2 CHD risk factors. LDL-C is now calculated using the Lokesh calculation, which is a validated novel method providing better accuracy than the Friedewald equation in the estimation of LDL-C. Aime BALES et al. KELLY. 2013;310(19): 3307-2103 (http://education.soup.me.Inverted Edge/faq/KSX108) CHOL/HDLC RATIO 2.1 <5.0 (calc) [facility] NON HDL CHOLESTEROL 74 <130 mg/dL (calc) [facility] Comment: For patients with diabetes plus 1 major ASCVD risk factor, treating to a non-HDL-C goal of <100 mg/dL (LDL-C of <70 mg/dL) is considered a therapeutic option. Blood BLOOD SPECIMEN / Unknown 08/25/2024 9:14 AM GRADE FOREMAN 08/25/2024 9:15 AM GRADE FOREMAN us Myra Escamilla MD CHEMISTRY Final Resul t [facility] [address] [place] [address], [facility] [address] [place] [address] * SCAN-COLONOSCOPY (07/10/2022 11:00 AM GRADE FOREMAN) Narrative Procedure Note Sebastian Irwin DO - 07/10/2022 9:25 AM CST [facility], [address], [facility] [address] [address] Patient Name: Janina Bermudez Gender: Female Exam Date: 07/10/2022 Visit Number: [id number] Age: 72 Years Date of : 1950 Attending MD: Sebastian Irwin DO Medical Record#: [id number] Procedure: Colonoscopy Indications: Diarrhea Referring MD: Referral Self Primary MD: Myra Escamilla MD Medications: Admitting Medications: 0.9% Normal Saline at [facility] Ondansetron Hydrochloride [...] hemorrhoids. Anal canal: internal hemorrhoid(s) Impression: Enteritis impression comments: -No macroscopic findings to explain patient's symptoms noted. Small boweland colon biopsies obtained Preliminary Plan: The patient and their physician will receive a copy of the pathologyreport as well as pathology-based recommendations for future screening orsurveiregency meridian. Procedure: Upper GI Endoscopy Indications: Abdominal Pain/Dyspepsia Provider: Sebastian Irwin DO Referring MD: Referral Self Primary MD: Myra Escamilla MD Medications: Admitting Medication: 0.9% Normal Saline at [facility] Ondansetron Hydrochloride (Zofran) given 4mg by IV [...] signed by: Clint Boo MD Interpreted at [facility], [address] [place] [address] Orders Instruction(s)/Education: Instruction/Education Timeframe Assessment Colon Cancer Prevention R19.7 Hemorrhoids (Internal) R19.7 High Fiber Diet R19.7 _Electronically signed by: Sebastian Irwin DO 07/10/2022 cc: Myra Escamilla MD cc: Myra Escamilla MD us Sebastian Irwin DO OTHER Final Res ult * (ABNORMAL) XR DXA BONE DENSITY 2 SITES AXIAL (08/15/2021 1:17 PM GRADE FOREMAN) Anatomical Region Laterality Modality Spine, HIPS, HIPL, HIPR Other Impressions 08/20/2021 8:27 AM GRADE FOREMAN Osteopenia. RECOMMENDATIONS: The National Osteoporosis Foundation recommends [...] recommended in 3-5 years. Josie Rosas PA-C [facility] 08/20/2021 Narrative 08/20/2021 8:27 AM GRADE FOREMAN For Patients: Results are automatically released to your [facility] ([employer]) account once available, in compliance with federal regulations. This means that you may see your results before your provider has had a chance to review them. Please allow 2-3 business days for your provider to comment on the results. XR DXA Bone Mineral Density (BMD) EXAM LOCATION: [address] [address] PATIENT NAME: Janina Bermudez DATE OF : [...] two scanners are made by the same animation artist. PROCEDURE: Dual-energy x-ray absorptiometry performed with routine [...] 11.2%. 10-year probability of hip fracture: 2.0%. us Myra Escamilla MD DEXA Final Resul t * ANTI HCV (08/29/2020 9:17 AM GRADE FOREMAN) HEPATITIS C ANTIBODY Non-React daniel Non-React daniel 08/29/2020 6:14 PM GRADE FOREMAN [facility] Comment:Antibodies to HCV no t detected; does not exclude the possibility of exposure to HCV. Blood BLOOD SPECIMEN / Unknown Venipuncture / Unknown 08/29/2020 9:17 AM GRADE FOREMAN 08/29/2020 9:20 AM GRADE FOREMAN us Masha Benton MD SEND OUTS Final R esult [facility] [address] [place] [address], [place] from Last 3 Months or Most Recently Relevant to Health Maintenance [place] [address] BLUE CROSS [place] BLUE MR PB ONLY MEDICARE PART A HB ONLY MEDICARE PART B HB ONLY [employer]UE [employer] [place] BLUE HB ONLY Advance Directives Documents on File Type Date Recorded Patient Mis Specialist Expl anation Healthcare Directive 12/18/2020 021 * Full Code (Latest Code Status on File) Date Activated Date Inactivated Comments 04/24/2018 8:04 AM 04/24/2018 6:17 PM Care Teams Aircraft Dispatcher Relationship Specialty Start Date End Date Myra Escamilla MD [address] [place] [address] PCP - General Family Practice 08/15/21 Sandee Damon MD Rheumatology Rheumatology 03/19/19 Rebecca Flynn MD [address] [facility] [place] [address] Hematology Hematology and Oncology 04/22/22 Nyasia Villa, VÍCTOR [address] [place] [address] Nurse Practitioner Hematology and Oncology 04/22/22
[2025-07-03 20:55] VITALS: BP 133/78; PULSE 80; RESP 16; TEMP 37.1; O2SAT 98; BMI 26.0
--- OUTSIDE RECORDS SUMMARY | 2025-07-03 21:30 | XMS_ITS | CCD ---
Author Name Interface, [id number] lity Address [address] [place] [address] Oncology Address [address] [place] [address] Reason for Visit Social History Date Name Value 04/09/2025 Sex Female
--- OUTSIDE RECORDS SUMMARY | 2025-07-03 21:30 | XMS_ITS | CCD ---
Author Name Interface, [id number] lity Address [address] [place] [address] Oncology Address [address] [place] [id number] Reason for Visit Social History Date Name Value 04/09/2025 Sex Female
--- NOTE | 2025-07-04 01:38 | ED.GENADULT ---
HPI - General Adult General Chief complaint: Abdominal Pain Stated complaint: diverticulitis Time Seen by Provider: 07/03/25 20:59 Source: patient and family Mode of arrival: ambulatory Limitations: no limitations History of Present Illness HPI narrative: 75-year-old female presents to the emergency department with abdominal pain in the pelvic area for the past few hours. No trauma or injury, no fever. Reports that she has been feeling a little constipated over the last couple of days. Has been increasing her fiber and water intake as been previously recommended by her colorectal team. She has a history of diverticulitis several times in the past. Has had prior colonoscopies. No bloody stools, no vomiting. She reports that she does tend to get flare-ups during times of stress including prepping for the upcoming holiday. No history of surgery for diverticulitis, no prior rupture. Has had a prior cholecystectomy and C-sections but no other abdominal surgeries. She does think that she needs antibiotics. No fevers, sweats or chills. No gynecological changes or dysuria. Prior ED notes reviewed. Has had imaging multiple times. Related Data Home Medications ?Medication ?Instructions ?Recorded ?Confirmed cetirizine 10 mg capsule (Zyrtec) 10 mg PO DAILY 07/09/22 05/31/25 clobetasol 0.05 % topical ointment 2 - 3 applic topical QWEEK 07/09/22 05/31/25 colestipol 1 gram tablet 2 g PO BID 07/09/22 05/31/25 levothyroxine 88 mcg tablet 88 mcg PO DAILY 07/09/22 05/31/25 lisinopril 10 mg tablet 10 mg PO DAILY 11/13/22 05/31/25 rosuvastatin 10 mg tablet 10 mg PO QPM 11/13/22 05/31/25 Allergies Allergy/AdvReac Type Severity Reaction Status Date / Time ciprofloxacin Allergy Intermediate Hives Verified 07/03/25 20:58 morphine AdvReac Mild Vomiting, Verified 07/03/25 20:58 Dizziness naproxen AdvReac Mild GI Upset Verified 07/03/25 20:58 oxycodone AdvReac Mild GI Upset Verified 07/03/25 20:58 tramadol AdvReac Mild GI Upset Verified 07/03/25 20:58 [facility] Medical History 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) Cataract ?H26.9 - Unspecified cataract (ICD-10) Sleep disorder ?G47.9 - Sleep disorder, unspecified (ICD-10) Osteopenia ?M85.80 - Other specified disorders of bone density and structure, unspecified site (ICD-10) ZHENG (obstructive sleep apnea) ?G47.33 - Obstructive sleep apnea (adult) (pediatric) (ICD-10) Hyperlipidemia ?E78.5 - Hyperlipidemia, unspecified (ICD-10) HTN (hypertension) ?I10 - Essential (primary) hypertension (ICD-10) 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) Surgical History History of hemilaminectomy ?Z98.890 - Other specified postprocedural states (ICD-10) History of tonsillectomy ?Z90.89 - Acquired absence of other organs (ICD-10) History of endoscopy ?Z98.890 - Other specified postprocedural states (ICD-10) History of colonoscopy ?Z98.890 - Other specified postprocedural states (ICD-10) History of section ?Z98.891 - History of uterine scar from previous surgery (ICD-10) Hx of cholecystectomy ?Z90.49 - Acquired absence of other specified parts of digestive tract (ICD-10) Social History Smoking Status: Never smoker Do you use any of these nicotine containing products: None Second hand tobacco smoke exposure: No How often do you have a drink containing alcohol: never How often do you have six or more drinks on one occasion: Never AUDIT-C Alcohol total score: 0 Non-prescribed substance use: denies use Exam Const: Vital Signs, click to edit/add: Vital Signs - 24 hr 07/03/25 20:55 Temperature 98.8 F Pulse Rate [Right Pulse Oximeter] 80 Respiratory Rate 16 Blood Pressure [Ri ght Upper Arm] 133/78 Pulse Oximetry 98 Oxygen Delivery Me thod Room Air Documenting provider has reviewed patient's vital signs: yes Common normals: no apparent distress General appearance: cooperative and well kempt HENMT: Common normals: normocephalic, moist oral mucous membranes and oropharynx normal Head and scalp: normocephalic Mouth: oral and palatal mucosa normal Eye: Common normals: conjunctivae normal General eye: normal appearance of both eyes Conjunctiva: conjunctiva(e) normal Neck & C-Spine: Common normals: full ROM and no lymphadenopathy General: normal visual inspection Resp: Common normals: normal respiratory effort, no use of accessory muscles and clear to auscultation bilaterally Effort & inspection: able to speak in complete sentences Auscultation: clear to auscultation bilaterally Cardio: Common normals: regular rate, regular rhythm, S1 normal heart sound, S2 normal heart sound and no murmurs Rate: regular rate Rhythm: regular rhythm Heart sounds: S1 normal and S2 normal GI: Common normals: Normal to inspection, nondistended, normoactive bowel sounds present, soft to palpation, no hepatosplenomegaly and no masses Palpation: soft and no hepatosplenomegaly Other: Mild tenderness to left lower quadrant/suprapubic area only. Extremity: Common normals: normal to inspection and normal capillary refill Psych: Appearance: well kempt Attitude: engaged Mood and affect: euthymic mood Insight: insight good Judgement: judgment good Skin: Common normals: no rashes or lesions noted General skin exam: no rashes or lesions noted Course Course ED Course: 75-year-old female with left lower quadrant pain and history of several prior similar bouts of diverticulitis. Cipro allergy. Counseled patient that a tell if this is diverticulosis or diverticulitis. She is pretty insistent that she needs antibiotics and that similar flares have been treated similarly. I discussed that if this is her preference, I do not recommend that we do blood work as she does not have a fever or signs of sepsis. I do not recommend that we risk radiation with a CT scan. X-ray would not be helpful. Rationale is reviewed and she is very agreeable to this plan. We discussed antibiotic choices. She does respond well to Augmentin. I let her know that this is no longer considered appropriate first-line therapy but I do treat several patients with that if they have tolerated it well and have found it effective in the past. Counseled that the failure rate may be as high as 20% and if she has rebound symptoms after completion of the medication or if she is not getting better in a few days, we really should reconsider are treatment plan. She was agreeable to this and would like to proceed with the Augmentin. Prescription given through [facility]. Counseled on Tylenol as needed for pain. Alarm symptoms reviewed that would warrant ED re-evaluation. She verbalizes understanding and agreement. Vital Signs Vital signs: Initial Vital Signs Temperature 98.8 F 07/03/25 20:55 Temperature Source Temporal Artery Scan 07/03/25 20:55 Pulse Rate 80 07/03/25 20:55 Pulse Rhythm Regular 07/03/25 20:55 Pulse Strength 3+ Normal 07/03/25 20:55 Respiratory Rate 16 07/03/25 20:55 Blood Pressure 133/78 07/03/25 20:55 Blood Pressure Mean 96 07/03/25 20:55 Blood Pressure Position Sitting 07/03/25 20:55 Pulse Oximetry 98 07/03/25 20:55 Oxygen Delivery Method Room Air 07/03/25 20:55 Vital Signs Temperature 98.8 F 07/03/25 20:55 Pulse Rate 80 07/03/25 20:55 Respiratory Rate 16 07/03/25 20:55 Blood Pressure 133/78 07/03/25 20:55 Pulse Oximetry 98 07/03/25 20:55 Oxygen Delivery Method Room Air 07/03/25 20:55 Temperature 98.8 F 07/03/25 20:55 Pulse Rate 80 07/03/25 20:55 Respiratory Rate 16 07/03/25 20:55 Blood Pressure 133/78 07/03/25 20:55 Pulse Oximetry 98 07/03/25 20:55 Oxygen Delivery Method Room Air 07/03/25 20:55 Discharge Plan Discharge Clinical Impression: Diverticulitis Patient Disposition: Home w/ Parent or Adult Condition: Stable Instructions: Diverticulitis (DC) Additional Instructions: As we discussed, this does seem like an early flare up of diverticulitis. With her Cipro allergy, antibiotic choice can be difficult. Because you have tolerated Augmentin with good success in the past, I do recommend that we go back to this medication even though as we discussed, there is a higher potential for treatment failure with that medication for some people. You will take 1 pill 2 times daily, please start your 1st dose right away. It is okay to use Tylenol as needed for discomfort. You should be re-evaluated if you have high fevers over 100.4, persistent bloody stools, persistent vomiting or severe symptoms. Activity Level: No Restrictions Discharge Diet: Regular Prescriptions: No Action clobetasol 0.05 % ointment 2 - 3 applic TOPICAL QWEEK Patient Comments: APPLY 2 TO 3 NIGHTS WEEKLY ON VULVA colestipol 1 gram tablet 2 g PO BID Patient Comments: TAKE 2 TABLETS BY MOUTH TWICE DAILY SWALLOWING WHOLE WITH ANY LIQUID. DO NOT CRUSH, CHEW, OR DIVIDE levothyroxine 88 mcg tablet 88 mcg PO DAILY Patient Comments: TAKE 1 TABLET (88 MCG) BY MOUTH BEFORE BREAKFAST. Zyrtec 10 mg capsule 10 mg PO DAILY lisinopril 10 mg tablet 10 mg PO DAILY rosuvastatin 10 mg tablet 10 mg PO QPM Follow Up/Referrals: Myra Escamilla MD [Primary Care Provider, Family Practice] [facility] Inst[facility]
== END 2025-07-03 21:34 | disposition home or self-care (01) ==
LOC: ED 21:28
PROVIDERS: Emergency Provider Family Medicine; PCP Family Medicine
DX: K57.32 Diverticulitis of large intestine without perforation or abscess without bleeding (principal)
CPT/HCPCS: 99283